=== PATIENT | female | born 1950 | race Caucasian/White ===

== ENCOUNTER → 2019-02-11 10:07 | Outpatient (CLI) | payer MEDICARE, MEDICAID, SELFPAY | PROVIDERS: PCP Internal Medicine; Visit Provider Physician Assistant | DX: M81.0 Age-related osteoporosis without current pathological fracture (principal); Z78.0 Asymptomatic menopausal state; Z90.722 Acquired absence of ovaries, bilateral; Z87.891 Personal history of nicotine dependence | CPT/HCPCS: 77080 ==

== ENCOUNTER 2019-06-20 08:57 | Emergency (ER) | payer MEDICARE, MEDICAID, SELFPAY ==
[2019-06-20 09:12] VITALS: BP 138/95; PULSE 73; RESP 18; TEMP 36.7; O2SAT 95
--- NOTE | 2019-06-20 09:13 | ED_ITS ---
HPI - SOB/Dyspnea General Chief Complaint: Shortness of Breath/Dyspnea Stated Complaint: possible pneumonia Time Seen by Provider: 06/20/19 09:07 Source: patient and EMS Mode of arrival: EMS Limitations: physical limitation (does not talk will shake her head) History of Present Illness Patient is a 69-year-old female who does not speak due to a stroke but can write things down and nod yes or now. She is presenting with cough. She was d iagnosed with possible pneumonia as outpatient and started on antibiotics a few days ago. She has had significant decreased oral intake over the last 2 weeks, caregiver at bedside states that she really won't eat or drink anything. She has been constipated as well and sometimes complains of abdominal pain. She has not had fever. She denies chest pain. MD Complaint: cough Related Data Home Medications Medication Instructions Recorded Confirmed mirtazapine 30 mg PO BEDTIME #0 06/22/17 06/20/19 sertraline 25 mg PO DAILY #0 06/22/17 06/20/19 albuterol sulfate [Ventolin HFA] 1 puff INHALATION PRN PRN 06/20/19 06/20/19 amlodipine 10 mg PO DAILY 06/20/19 06/20/19 azithromycin 250 mg PO DAILYX4 06/20/19 06/20/19 clopidogrel 75 mg PO DAILY 06/20/19 06/20/19 ondansetron 4 mg TRANSLINGUAL Q8H PRN 06/20/19 06/20/19 zolpidem 5 mg PO BEDTIME PRN 06/20/19 06/20/19 Previous Rx's Medication Instructions Recorded carvedilol [Coreg] 6.25 mg PO BID #30 tab 06/22/17 omeprazole 20 mg PO DAILY #14 cap 06/20/19 Allergies Allergy/AdvReac Type Severity Reaction Status Date / Time No Known Drug Allergies Allergy Verified 06/20/19 09:20 Review of Systems Review of Systems ROS Unobtainable: All systems reviewed & are unremarkable except as noted in HPI and below Constitutional Denies chills, Denies fever(s) and Reports poor appetite Eyes Denies change in vision, Denies eye discharge, Denies irritation and Denies loss of vision Cardiovascular Denies chest pain, Denies irregular heart rhythm, Denies dyspnea and Denies dyspnea on exertion Respiratory Reports cough, Denies dyspnea, Denies dyspnea on exertion and Denies wheezing Gastrointestinal Gastrointestinal: Reports abdominal pain, Reports change in bowel habits, Denies nausea and Denies vomiting Genitourinary Denies hematuria, Denies flank pain, Denies urinary incontinence and Denies urinary urgency Musculoskeletal Denies atrophy and Denies deformity Integumentary/Breasts Denies pruritus, Denies erythema, Denies rash and Denies wounds Neurologic Reports as per HPI and Denies loss of vision Allergic/Immunologic Denies wheezing [facility] Medical History CVA (cerebral vascular accident) (Acute) Hypertension (Acute) Social History Smoking Status: Former smoker Social History Smoking Status: Former smoker Exam Initial Vital Signs Initial Vital Signs: Vital Signs Temperature 98.1 F 06/20/19 09:12 Pulse Rate 73 06/20/19 09:12 Respiratory Rate 18 06/20/19 09:12 Blood Pressure 138/95 H 06/20/19 09:12 Pulse Oximetry 95 06/20/19 09:12 GENERAL: Alert well-appearing elderly female, follows commands nods appropriately HEENT: Head atraumatic,EOMI, pupils reactive, face symmetric, moist mucous mem branes CARDIOVASCULAR: Regular rate and rhythm without murmurs, rubs or gallops. RESPIRATORY: Breath sounds equal bilaterally, no wheezes rales or rhonchi. ABDOMEN: Soft, minimally tender in epigastric and left upper quadrant area no guarding no rebound EXTREMITIES: Normal range of motion, no clubbing or edema. Neurovascularly intact NEUROLOGICAL: New at baseline follows commands answer yes and no to questions SKIN: Warm, dry, no laceration, no petechiae, no rashes or lesions. Course Orders Ordered: ED Orders 06/20/19 09:14 XR chest 1V Stat 06/20/19 09:30 Complete Blood Count AUTO DIFF Stat Comprehensive Metabolic Panel Stat Lactate (Lactic Acid) Stat Lipase Stat Procalcitonin Stat 06/20/19 10:10 Blood Culture Stat 06/20/19 11:37 CT abdomen pelvis w con Stat Discontinued Medications Sodium Chloride (Normal Saline 0.9%) 1,000 mls @ 150 mls/hr IV CONT MIRIAM Last Infusion: 06/20/19 13:27 Dose: 0 mls/hr Infusion: 06/20/19 13:20 Dose: 0 mls/hr Admin: 06/20/19 09:39 Dose: 150 mls/hr Ondansetron HCl (Zofran Odt) 4 mg SL NOW ONE Stop: 06/20/19 13:36 Last Admin: 06/20/19 13:37 Dose: 4 mg Pantoprazole Sodium (Protonix) 40 mg IV NOW ONE Stop: 06/20/19 12:35 Last Admin: 06/20/19 13:18 Dose: 40 mg Potassium Chloride (Potassium Chloride) 20 meq PO NOW ONE Stop: 06/20/19 11:28 Last Admin: 06/20/19 11:35 Dose: 20 meq Vital Signs - 8 hr 06/20/19 09:12 06/20/19 10:32 06/20/19 11:52 Temperature 98.1 F Pulse Rate 73 63 79 Respiratory Rate 18 14 20 Blood Pressure 138/95 H Blood Pressure [Right Arm] 149/74 H 148/76 H Pulse Oximetry 95 96 92 06/20/19 13:27 Temperature Pulse Rate 69 Respiratory Rate 16 Blood Pressure 165/95 H Blood Pressure [Right Arm] Pulse Oximetry 96 MDM - SOB/Dyspnea Lab Data Attestation: I reviewed the patient's lab results. Result diagrams: 06/20/19 09:30 06/20/19 09:30 Lab Results 06/20/19 06/20/19 06/20/19 Range/Units 09:30 09:30 09:30 WBC 6.9 (4.5-11.0) X10^3/uL RBC 4.13 (4.0-5.2) X10^6/uL Hgb 13.3 (12.0-16.0) g/dL Hct 38.0 (36-46) % MCV 92.0 (80-100) fL MCH 32.2 (26-34) PG MCHC 34.9 (30-36) % RDW 15.0 H (11.6-14.8) % Plt Count 220 (150-400) X10^3/uL Neut % (Auto) 63.9 (50-75) % Lymph % (Auto) 27.2 (25-40) % Boyle % (Auto) 8.3 (3-14) % Eos % (Auto) 0.2 L (2-4) % Baso % (Auto) 0.4 (0-2) % Neut # (Auto) 4400 (9675-5675) /uL Lymph # (Auto) 1900 (5242-6692) /uL Boyle # (Auto) 600 (0-900) /uL Eos # (Auto) 0 (0-450) /uL Baso # (Auto) 0 (0-100) /uL Sodium 139 (137-145) mmol/L Potassium 3.0 L (3.4-5.1) mmol/L Chloride 96 L (98-107) mmol/L Carbon Dioxide 25 (22-32) mmol/L BUN 23 H (7-17) mg/dL Creatinine 0.60 (0.52-1.04) mg/dL Estimated GFR > 60.0 (>60) mL/min BUN/Creatinine Ratio 38.3 H (6-22) Glucose 126 H (80-110) mg/dL Lactate (0.7-2.1) mmol/L Calcium 9.9 (8.4-10.2) mg/dL Total Bilirubin 1.1 (0.2-1.3) mg/dL AST 20 (14-36) IU/L ALT 11 (9-52) IU/L Alkaline Phosphatase 42 (38-126) U/L Total Protein 7.2 (6.3-8.2) g/dL Albumin 4.5 (3.5-5.0) g/dL Globulin 2.7 (1.7-4.1) g/dL Albumin/Globulin Ratio 1.7 (1.0-2.8) Lipase (23-300) U/L Procalcitonin < 0.05 (<0.5) ng/mL 06/20/19 06/20/19 Range/Units 09:30 09:30 WBC (4.5-11.0) X10^3/uL RBC (4.0-5.2) X10^6/uL Hgb (12.0-16.0) g/dL Hct (36-46) % MCV (80-100) fL MCH (26-34) PG MCHC (30-36) % RDW (11.6-14.8) % Plt Count (150-400) X10^3/uL Neut % (Auto) (50-75) % Lymph % (Auto) (25-40) % Boyle % (Auto) (3-14) % Eos % (Auto) (2-4) % Baso % (Auto) (0-2) % Neut # (Auto) (9663-1249) /uL Lymph # (Auto) (8169-2494) /uL Boyle # (Auto) (0-900) /uL Eos # (Auto) (0-450) /uL Baso # (Auto) (0-100) /uL Sodium (137-145) mmol/L Potassium (3.4-5.1) mmol/L Chloride (98-107) mmol/L Carbon Dioxide (22-32) mmol/L BUN (7-17) mg/dL Creatinine (0.52-1.04) mg/dL Estimated GFR (>60) mL/min BUN/Creatinine Ratio (6-22) Glucose (80-110) mg/dL Lactate 1.1 (0.7-2.1) mmol/L Calcium (8.4-10.2) mg/dL Total Bilirubin (0.2-1.3) mg/dL AST (14-36) IU/L ALT (9-52) IU/L Alkaline Phosphatase (38-126) U/L Total Protein (6.3-8.2) g/dL Albumin (3.5-5.0) g/dL Globulin (1.7-4.1) g/dL Albumin/Globulin Ratio (1.0-2.8) Lipase 125 (23-300) U/L Procalcitonin (<0.5) ng/mL Imaging Data CT scan - abdomen: Radiologist's impression: PROCEDURE: CT ABDOMEN PELVIS W CON INDICATIONS: abdominal pains TECHNIQUE: After the administration of intravenous contrast, 5 mm thick sections acquired from the diaphragm to the symphysis. 5 mm coronal and sagittal reformats were acquired. For radiation dose reduction, the following was used: automated exposure control, adjustment of mA and/or kV according to patient size. COMPARISON: None. FINDINGS: Image quality: Excellent. ABDOMEN: Lung bases: Chronic emphysematous changes and by basilar hazy groundglass opacities are seen suggestive of mild pulmonary edema versus pneumonitis. No pleural effusion or pneumothorax. Heart size is enlarged, no pericardial effusion. Solid organs: Liver is normal in size and enhancement. Gallbladder is distended, no gross abnormality is seen. Biliary system is non dilated. Atrophic appearing pancreas shows no discrete pancreatic lesion. No peripancreatic inflammatory changes. Spleen is normal in size and enhancement. No adrenal nodules. Kidneys demonstrate normal size and enhancement, without hydronephrosis. Peritoneum and bowel: There is no evidence of bowel obstruction. Gastric wall and duodenal wall thickening is seen with edema. No other area of abnormal bowel wall thickening. Appendix is visualized and is within normal limits. No free fluid or free air. Small hiatal hernia is seen. Mild fecal stasis in the colon is noted. Nodes and vessels: No retroperitoneal or mesenteric adenopathy by size criteria. Aorta and inferior vena cava are normal in size. Extensive atherosclerotic calcifications are noted throughout the abdominal aorta and bilateral iliac arteries. Miscellaneous: No ventral hernias. PELVIS: Genitourinary: Bladder wall thickness is normal. Miscellaneous: No inguinal hernias or adenopathy. Uterus and bilateral adnexa shows no gross abnormality. Bones: No suspicious bony lesions. No vertebral body compression fractures. IMPRESSION: 1. Finding is suggestive of gastroduodenitis. No bowel obstruction. No free fluid or free air. Normal appendix. Small hiatal hernia. 2. No renal stone hydronephrosis. 3. COPD and suggestion of mild pulmonary edema versus pneumonitis. Cardiomegaly. 4. Extensive atherosclerotic disease throughout the abdominal aorta. Dictated by: Ken Cuevas M.D. on 06/20/2019 at 11:57 Chest x-ray: Radiologist's impression: PROCEDURE: XR CHEST 1V INDICATIONS: cough TECHNIQUE: One view of the chest was acquired. COMPARISON: [facility], CHEST 1 VIEW, 06/21/2017, 22:15. FINDINGS: Surgical changes and devices: None. Lungs and pleura: Lungs are clear. No pleural effusions or pneumothorax. Mediastinum: Tortuous thoracic aorta is seen. Heart size is enlarged. Bones and chest wall: No suspicious bony lesions. Overlying soft tissues appear unremarkable. IMPRESSION: Tortuous thoracic aorta with aortic arch calcification. No focal infiltrate, pleural effusion or pneumothorax. Dictated by: Ken Cuevas M.D. on 06/20/2019 at 9:39 MDM Narrative Medical decision making narrative: The patient is slightly dehydrated on labs she is even a little hypokalemic. CT does show some gastroduoditis, she is already taking omeprazole but will increase it. Patient is not septic. There is no infection. She did urinate while in the ED. She has no signs of pneumonia. Discussed with her spouse and caregiver we cannot make her eat or drink. But likely the inflammation her stomach is causing her not to eat or drink. Recommended increasing omeprazole to twice daily. In following up with her PCP. Discharge Plan Departure Patient Disposition: Home Clinical Impression: Gastroduodenitis, Acute hypokalemia Discharge Date/Time: 06/20/19 13:49 Interventions: ED Discharge Assessment Last Done: 06/20/19 13:27 Instructions: DI for Gastritis Activity Restrictions/Additional Instructions: *You have been diagnosed with gastroduodenitis *What to do: Inflammation of the stomach. Recommend increasing fluids as best as possible. Jell-O applesauce broth. Also boost or Ensure will also help with nutrition and hydration. There is no evidence of pneumonia. *Continue to take medications as directed--> SENT TO [facility] Omeprazole 20 mg twice a day *Follow up with your primary care provider in 2-3 days *Return to ER if you should have increasing confusion, weakness, pain or any new, worsening or concerning symptoms Prescriptions: New omeprazole 20 mg capsule,delayed release(DR/EC) 20 mg PO DAILY Qty: 14 RF: 0 No Action mirtazapine 30 MG tablet 30 mg PO BEDTIME Qty: 0 RF: 0 sertraline 25 MG tablet 25 mg PO DAILY Qty: 0 RF: 0 carvedilol [Coreg] 6.25 MG tablet 6.25 mg PO BID Qty: 30 RF: 0 azithromycin 250 mg tablet 250 mg PO DAILYX4 RF: 0 clopidogrel 75 mg tablet 75 mg PO DAILY RF: 0 amlodipine 10 mg tablet 10 mg PO DAILY RF: 0 zolpidem 5 mg tablet 5 mg PO BEDTIME PRN (Reason: Sleep) RF: 0 albuterol sulfate [Ventolin HFA] 90 mcg/actuation HFA aerosol inhaler 1 puff inhalation PRN PRN (Reason: Shortness Of Breath) RF: 0 ondansetron 4 mg tablet,disintegrating 4 mg translingual Q8H PRN (Reason: Nausea And Vomiting) RF: 0 Referrals: Roxane Hummel MD [Primary Care Provider] -
[2019-06-20] MEDS: SODIUM CHLORIDE 0.9% 1,000 ML 150 ML IV (09:39)
[2019-06-20 09:51] LABS: Add Manual Diff / Slide Review NO; Basophils Absolute Auto 0 /uL (0-100); Basophils Percent Auto 0.4 % (0-2); Eosinophils Absolute Auto 0 /uL (0-450); Eosinophils Percent Auto 0.2 % (2-4); Hemoglobin 13.3 g/dL (12.0-16.0); Lymphocytes Absolute Auto 1900 /uL (1100-4500); Lymphocytes Percent Auto 27.2 % (25-40); Mean Corpuscular HGB Conc 34.9 % (30-36); Mean Corpuscular Hemoglobin 32.2 PG (26-34); Monocytes Absolute Auto 600 /uL (0-900); Monocytes Percent Auto 8.3 % (3-14); Neutrophils Absolute Auto 4400 /uL (1500-7000); Neutrophils Percent Auto 63.9 % (50-75); Platelet Count 220 X10^3/uL (150-400); Red Blood Cell Count 4.13 X10^6/uL (4.0-5.2); White Blood Cell Count 6.9 X10^3/uL (4.5-11.0)
[2019-06-20 09:55] LABS: Lactate (Lactic Acid) 1.1 mmol/L (0.7-2.1)
[2019-06-20 09:56] LABS: Alanine Aminotransferase 11 IU/L (9-52); Albumin 4.5 g/dL (3.5-5.0); Albumin Globulin Ratio 1.7 (1.0-2.8); Alkaline Phosphatase 42 U/L (38-126); Aspartate Aminotransferase 20 IU/L (14-36); BUN Creatinine Ratio 38.3 (6-22); Bilirubin Total 1.1 mg/dL (0.2-1.3); Blood Urea Nitrogen 23 mg/dL (7-17); Calcium 9.9 mg/dL (8.4-10.2); Carbon Dioxide 25 mmol/L (22-32); Chloride 96 mmol/L (98-107); Estimated Glomerular Filt Rate > 60.0 mL/min (>60); Globulin 2.7 g/dL (1.7-4.1); Glucose 126 mg/dL (80-110); HEMOLYSIS 26 (0-50); Sodium 139 mmol/L (137-145); Total Protein 7.2 g/dL (6.3-8.2)
[2019-06-20 10:18] LABS: Procalcitonin < 0.05 ng/mL (<0.5)
[2019-06-20 10:32] VITALS: BP 149/74; PULSE 63; RESP 14; O2SAT 96
[2019-06-20] MEDS: POTASSIUM CHLORIDE 20 MEQ/15 ML UDC PO (11:35)
--- NOTE | 2019-06-20 11:37 | DI.CT.S_ITS ---
PROCEDURE: CT ABDOMEN PELVIS W CON INDICATIONS: abdominal pains TECHNIQUE: After the administration of intravenous contrast, 5 mm thick sections acquired from the diaphragm to the symphysis. 5 mm coronal and sagittal reformats were acquired. For radiation dose reduction, the following was used: automated exposure control, adjustment of mA and/or kV according to patient size. COMPARISON: None. FINDINGS: Image quality: Excellent. ABDOMEN: Lung bases: Chronic emphysematous changes and by basilar hazy groundglass opacities are seen suggestive of mild pulmonary edema versus pneumonitis. No pleural effusion or pneumothorax. Heart size is enlarged, no pericardial effusion. Solid organs: Liver is normal in size and enhancement. Gallbladder is distended, no gross abnormality is seen. Biliary system is non dilated. Atrophic appearing pancreas shows no discrete pancreatic lesion. No peripancreatic inflammatory changes. Spleen is normal in size and enhancement. No adrenal nodules. Kidneys demonstrate normal size and enhancement, without hydronephrosis. Peritoneum and bowel: There is no evidence of bowel obstruction. Gastric wall and duodenal wall thickening is seen with edema. No other area of abnormal bowel wall thickening. Appendix is visualized and is within normal limits. No free fluid or free air. Small hiatal hernia is seen. Mild fecal stasis in the colon is noted. Nodes and vessels: No retroperitoneal or mesenteric adenopathy by size criteria. Aorta and inferior vena cava are normal in size. Extensive atherosclerotic calcifications are noted throughout the abdominal aorta and bilateral iliac arteries. Miscellaneous: No ventral hernias. PELVIS: Genitourinary: Bladder wall thickness is normal. Miscellaneous: No inguinal hernias or adenopathy. Uterus and bilateral adnexa shows no gross abnormality. Bones: No suspicious bony lesions. No vertebral body compression fractures. IMPRESSION: 1. Finding is suggestive of gastroduodenitis. No bowel obstruction. No free fluid or free air. Normal appendix. Small hiatal hernia. 2. No renal stone hydronephrosis. 3. COPD and suggestion of mild pulmonary edema versus pneumonitis. Cardiomegaly. 4. Extensive atherosclerotic disease throughout the abdominal aorta. Dictated by: Ken Cuevas M.D. on 06/20/2019 at 11:57 Approved by: Ken Cuevas M.D. on 06/20/2019 at 12:04
[2019-06-20 11:45] LABS: Lipase 125 U/L (23-300)
[2019-06-20 11:52] VITALS: BP 148/76; PULSE 79; RESP 20; O2SAT 92
[2019-06-20] MEDS: PANTOPRAZOLE 40 MG VIAL IV (13:18)
[2019-06-20 13:27] VITALS: BP 165/95; PULSE 69; RESP 16; O2SAT 96
[2019-06-20] MEDS: ONDANSETRON 4 MG ODT SL (13:37)
== END 2019-06-20 13:49 | disposition home or self-care (01) ==
PROVIDERS: Emergency Provider Emergency Medicine; PCP Internal Medicine
DX: K29.90 Gastroduodenitis, unspecified, without bleeding (principal); E87.6 Hypokalemia
CPT/HCPCS: 36415; 36591; 71045; 74177; 80053; 83605; 83690; 84145; 85025; 87040; 96361; 96374; 99284; C9113; Q9967

== ENCOUNTER 2019-06-24 12:10 | Inpatient (IN) | payer MEDICARE, MEDICAID, SELFPAY ==
[2019-06-24] VITALS (10 sets, daily range): BP systolic 136–163; BP diastolic 72–92; PULSE 61–77; RESP 11–18; TEMP 36.2; O2SAT 93–98; BMI 18.8
--- NOTE | 2019-06-24 12:11 | DI.RAD.S_ITS ---
PROCEDURE: XR ACUTE ABDOMEN SERIES INDICATIONS: persistent vomiting TECHNIQUE: One view chest and two views of the abdomen were acquired. COMPARISON: None. FINDINGS: Surgical changes and devices: None. Chest: Lungs are clear. Heart size is at the upper limits of normal. No pleural effusions. No pneumoperitoneum. Abdomen: Bowel gas pattern is abnormal with an unusually prominent degree of gas within the colon, measuring up to 7.6 cm in maximal transverse dimension but areas of definite small bowel distention are not found. No free air seen.. No suspicious calcifications. Visualized solid organ contours appear normal. Bones: No suspicious bony lesions. IMPRESSION: Unusually prominent bowel gas which is predominantly colonic, and yet the transverse dimension of the colon does not reach the size criteria for definite distention and obstruction. Small bowel loops do not appear distended. No free air seen. Depending on clinical status followup by CT scanning may become necessary. Dictated by: Pj Alvares M.D. on 06/24/2019 at 14:03 Approved by: Pj Alvares M.D. on 06/24/2019 at 14:05
--- NOTE | 2019-06-24 12:14 | ED.NAVMDI ---
HPI - Nausea/Vomiting/Diarrhea General Chief complaint: Nausea/Vomiting/Diarrhea Stated complaint: N/V Time Seen by Provider: 06/24/19 12:11 Source: patient and EMS Mode of arrival: EMS Limitations: physical limitation and other (non verbal at baseline) History of Present Illness HPI Narrative: 69-year-old female of stroke which has left her nonverbal presents by EMS from home for evaluation of increased weakness and persistent vomiting for the past few weeks. Family states that she has had very little to eat or drink in quite some time. They state that she frequently chokes on what she attempts to eat or drink and that she has become significantly weak. Patient normally ambulates with assistance and a wheelchair but has become too weak to do this safely in the eyes of family at home. She has had no fever or chills. She was seen and evaluated in our emergency department on June 20, she had extensive lab work and imaging including a CT of the abdomen noting gastroduodenitis in the absence of bowel obstruction. She was encouraged to increase her PPI to twice daily. MD complaint: nausea and vomiting Onset (ago): week(s) Description of Vomiting: food contents and watery Description of Diarrhea: none Related Data Home Medications Medication Instructions Recorded Confirmed mirtazapine 30 mg PO BEDTIME #0 06/22/17 06/24/19 sertraline 25 mg PO DAILY #0 06/22/17 06/24/19 albuterol sulfate [Ventolin HFA] 1 puff INHALATION PRN PRN 06/20/19 06/24/19 amlodipine 10 mg PO DAILY 06/20/19 06/24/19 azithromycin 250 mg PO DAILYX4 06/20/19 06/24/19 clopidogrel 75 mg PO DAILY 06/20/19 06/24/19 ondansetron 4 mg TRANSLINGUAL Q8H PRN 06/20/19 06/24/19 zolpidem 5 mg PO BEDTIME PRN 06/20/19 06/24/19 Previous Rx's Medication Instructions Recorded carvedilol [Coreg] 6.25 mg PO BID #30 tab 06/22/17 omeprazole 20 mg PO DAILY #14 cap 06/20/19 Allergies Allergy/AdvReac Type Severity Reaction Status Date / Time No Known Drug Allergies Allergy Verified 06/24/19 12:20 Review of Systems Review of Systems ROS Unobtainable: All systems reviewed & are unremarkable except as noted in HPI and below Constitutional Denies chills, Denies fever(s), Denies lethargy and Reports weakness Eyes Denies change in vision, Denies eye discharge, Denies irritation and Denies loss of vision ENT Ears, Nose, Mouth, and Throat: Denies change in voice, Denies neck pain and Denies sore throat Cardiovascular Denies chest pain, Denies irregular heart rhythm, Denies lightheadedness, Denies palpitations, Denies dyspnea, Denies dyspnea on exertion and Denies orthopnea Respiratory Denies cough, Denies dyspnea, Denies dyspnea on exertion and Denies wheezing Gastrointestinal Gastrointestinal: Reports abdominal pain, Denies change in bowel habits, Denies diarrhea, Reports nausea and Reports vomiting Genitourinary Denies hematuria, Denies flank pain, Denies urinary incontinence and Denies urinary urgency Musculoskeletal Denies neck pain Integumentary/Breasts Denies pruritus, Denies erythema, Denies rash and Denies wounds Neurologic Denies confusion, Denies loss of vision and Reports weakness Psychiatric Denies anxiety, Denies confusion, Denies depression, Denies homicidal ideation and Denies suicidal ideation Endocrine Denies palpitations Hematologic/Lymphatic Denies easy bruising Allergic/Immunologic Denies wheezing PFSH Medical History CVA (cerebral vascular accident) (Acute) Hypertension (Acute) Social History household members: spouse Smoking Status: Former smoker alcohol intake: former Exam Narrative Exam Narrative: GENERAL: Pleasant 69-year-old female appears stated age. Clearly uncomfortable and rubbing her abdomen. She is nonverbal but communicates well by head nods and hand gestures. HEAD: Atraumatic. Normocephalic. No temporal or scalp tenderness. EYES: Pupils equal round and reactive. Extraocular motions intact. No scleral icterus. No injection or drainage. ENT: Nose without bleeding, purulent drainage or septal hematoma. Throat without erythema, tonsillar hypertrophy or exudate. Uvula midline. Airway patent. NECK: Trachea midline. No JVD or lymphadenopathy. Supple, nontender, no meningeal signs. CARDIOVASCULAR: Regular rate and rhythm without murmurs, gallops, or rubs. RESPIRATORY: Clear to auscultation. Breath sounds equal bilaterally. No wheezes, rales, or rhonchi. GASTROINTESTINAL: Abdomen soft, tender in the epigastrium, nondistended. No hepato-splenomegaly, or palpable masses. No guarding. EXTREMITIES: No clubbing, cyanosis, or edema. No joint tenderness, effusion, or edema noted. BACK: Nontender without deformity or crepitance. No flank tenderness. NEURO: AOx3. SKIN: No rash or erythema. Initial Vital Signs Initial Vital Signs: Vital Signs Pulse Rate 77 06/24/19 12:10 Respiratory Rate 16 06/24/19 12:10 Blood Pressure 154/72 H 06/24/19 12:10 Pulse Oximetry 98 06/24/19 12:10 Course Orders Ordered: ED Orders 06/24/19 12:11 XR acute abdomen series Stat 06/24/19 12:20 Complete Blood Count AUTO DIFF Stat Comprehensive Metabolic Panel Stat Lipase Stat Magnesium Stat 06/24/19 12:30 Urinalysis and Microscopic Stat 06/24/19 14:44 CT abdomen pelvis w con Stat 06/24/19 17:58 Consult to Dietitian, Adult Routine Potassium Chloride 80 meq/ (Sodium Chloride) 1,040 mls @ 130 mls/hr IV NOW ONE Stop: 06/24/19 21:53 Last Infusion: 06/24/19 17:10 Dose: 130 mls/hr Admin: 06/24/19 14:40 Dose: 130 mls/hr Sodium Chloride (Normal Saline 0.9%) 1,000 mls @ 100 mls/hr IV CONT MIRIAM Last Admin: 06/24/19 14:39 Dose: Not Given Discontinued Medications Sodium Chloride (Normal Saline 0.9%) 1,000 mls @ 1,000 mls/hr IV BOLUS ONE Stop: 06/24/19 13:10 Last Infusion: 06/24/19 14:11 Dose: 0 mls/hr Infusion: 06/24/19 14:10 Dose: 0 mls/hr Admin: 06/24/19 12:28 Dose: 1,000 mls/hr Ondansetron HCl (Zofran) 4 mg IV NOW ONE Stop: 06/24/19 12:12 Last Admin: 06/24/19 12:28 Dose: 4 mg Pantoprazole Sodium (Protonix) 80 mg IV NOW ONE Stop: 06/24/19 16:24 Last Admin: 06/24/19 17:03 Dose: 80 mg Consultations Consultation #1: Images reviewed by surgeon on-call. No obstruction noted. Duodenal thickening does not require antibiotics but PPI twice daily. Likely will need a scope in the next day or 2 Vital Signs - 8 hr 06/24/19 12:10 06/24/19 12:30 06/24/19 13:00 Pulse Rate 77 63 62 Respiratory Rate 16 17 13 Blood Pressure 154/72 H Blood Pressure [Left Arm] 150/73 H 136/78 Pulse Oximetry 98 96 95 06/24/19 13:30 06/24/19 14:00 06/24/19 14:43 Pulse Rate 61 66 Respiratory Rate 16 12 11 L Blood Pressure Blood Pressure [Left Arm] 151/72 H 148/72 H 151/76 H Pulse Oximetry 93 95 06/24/19 16:00 06/24/19 16:01 06/24/19 16:50 Pulse Rate 76 73 72 Respiratory Rate 15 16 17 Blood Pressure Blood Pressure [Left Arm] 158/83 H 153/74 H 163/92 H Pulse Oximetry 98 96 97 MDM - Nausea/Vomiting/Diarrhea Lab Data Result diagrams: 06/24/19 12:20 06/24/19 12:20 Lab Results 06/24/19 06/24/19 06/24/19 Range/Units 12:20 12:20 12:20 WBC 6.6 (4.5-11.0) X10^3/uL RBC 4.11 (4.0-5.2) X10^6/uL Hgb 13.3 (12.0-16.0) g/dL Hct 37.9 (36-46) % MCV 92.3 (80-100) fL MCH 32.3 (26-34) PG MCHC 35.0 (30-36) % RDW 14.7 (11.6-14.8) % Plt Count 232 (150-400) X10^3/uL Neut % (Auto) 63.5 (50-75) % Lymph % (Auto) 26.6 (25-40) % Boyd % (Auto) 9.4 (3-14) % Eos % (Auto) 0.1 L (2-4) % Baso % (Auto) 0.4 (0-2) % Neut # (Auto) 4200 (5565-3700) /uL Lymph # (Auto) 1800 (2223-4962) /uL Boyd # (Auto) 600 (0-900) /uL Eos # (Auto) 0 (0-450) /uL Baso # (Auto) 0 (0-100) /uL Sodium 136 L (137-145) mmol/L Potassium 3.0 L (3.4-5.1) mmol/L Chloride 92 L (98-107) mmol/L Carbon Dioxide 26 (22-32) mmol/L BUN 21 H (7-17) mg/dL Creatinine 0.50 L (0.52-1.04) mg/dL Estimated GFR > 60.0 (>60) mL/min BUN/Creatinine Ratio 42.0 H (6-22) Glucose 126 H (80-110) mg/dL Calcium 9.7 (8.4-10.2) mg/dL Magnesium 1.7 (1.6-2.3) mg/dL Total Bilirubin 1.3 (0.2-1.3) mg/dL AST 20 (14-36) IU/L ALT 8 L (9-52) IU/L Alkaline Phosphatase 44 (38-126) U/L Total Protein 7.1 (6.3-8.2) g/dL Albumin 4.4 (3.5-5.0) g/dL Globulin 2.7 (1.7-4.1) g/dL Albumin/Globulin Ratio 1.6 (1.0-2.8) Lipase 185 (23-300) U/L Urine Color Urine Appearance Urine pH (4.5-8.0) Ur Specific [place] (1.000-1.035) Urine Protein (Negative) Urine Glucose (UA) (Negative) g/dL Urine Ketones (NEGATIVE) Urine Occult Blood (Negative) Urine Nitrate (Negative) Urine Bilirubin (NEGATIVE) Urine Urobilinogen (0.2) E.U./dL Ur Leukocyte Esterase (NEGATIVE) Urine RBC (0-5/HPF) Urine WBC (0-5/HPF) Ur Squamous Epith Cells (0-5/HPF) Amorphous Sediment Urine Bacteria (None) Urine Mucus (Negative) Ur Culture Indicated? 06/24/19 Range/Units 12:30 WBC (4.5-11.0) X10^3/uL RBC (4.0-5.2) X10^6/uL Hgb (12.0-16.0) g/dL Hct (36-46) % MCV (80-100) fL MCH (26-34) PG MCHC (30-36) % RDW (11.6-14.8) % Plt Count (150-400) X10^3/uL Neut % (Auto) (50-75) % Lymph % (Auto) (25-40) % Boyd % (Auto) (3-14) % Eos % (Auto) (2-4) % Baso % (Auto) (0-2) % Neut # (Auto) (7555-2681) /uL Lymph # (Auto) (2515-9594) /uL Boyd # (Auto) (0-900) /uL Eos # (Auto) (0-450) /uL Baso # (Auto) (0-100) /uL Sodium (137-145) mmol/L Potassium (3.4-5.1) mmol/L Chloride (98-107) mmol/L Carbon Dioxide (22-32) mmol/L BUN (7-17) mg/dL Creatinine (0.52-1.04) mg/dL Estimated GFR (>60) mL/min BUN/Creatinine Ratio (6-22) Glucose (80-110) mg/dL Calcium (8.4-10.2) mg/dL Magnesium (1.6-2.3) mg/dL Total Bilirubin (0.2-1.3) mg/dL AST (14-36) IU/L ALT (9-52) IU/L Alkaline Phosphatase (38-126) U/L Total Protein (6.3-8.2) g/dL Albumin (3.5-5.0) g/dL Globulin (1.7-4.1) g/dL Albumin/Globulin Ratio (1.0-2.8) Lipase (23-300) U/L Urine Color Yellow Urine Appearance Clear Urine pH 7.0 (4.5-8.0) Ur Specific [place] 1.020 (1.000-1.035) Urine Protein 1+ H (Negative) Urine Glucose (UA) Negative (Negative) g/dL Urine Ketones 2+ H (NEGATIVE) Urine Occult Blood Negative (Negative) Urine Nitrate Negative (Negative) Urine Bilirubin 2+ H (NEGATIVE) Urine Urobilinogen 1.0 (0.2) E.U./dL Ur Leukocyte Esterase Negative (NEGATIVE) Urine RBC None seen (0-5/HPF) Urine WBC 0-1/hpf (0-5/HPF) Ur Squamous Epith Cells 0-1 /hpf (0-5/HPF) Amorphous Sediment 1+ Urine Bacteria None seen (None) Urine Mucus 1+ H (Negative) Ur Culture Indicated? Cult not indicated Imaging Data Abdominal x-ray: Radiologist's impression: [place] [address] XRay Report Signed Patient: Екатерина Murphy [facility]#: [id number] : 9Acct:[id number] Age/Sex: 69 / FDate of Service: 06/24/19 Loc: ED Accession Number: [id number] Procedure: XR acute abdomen series Ordering Provider: Hiram Saldana D.O. PROCEDURE: XR ACUTE ABDOMEN SERIES INDICATIONS: persistent vomiting TECHNIQUE: One view chest and two views of the abdomen were acquired. COMPARISON: None. FINDINGS: Surgical changes and devices: None. Chest: Lungs are clear. Heart size is at the upper limits of normal. No pleural effusions. No pneumoperitoneum. Abdomen: Bowel gas pattern is abnormal with an unusually prominent degree of gas within the colon, measuring up to 7.6 cm in maximal transverse dimension but areas of definite small bowel distention are not found. No free air seen.. No suspicious calcifications. Visualized solid organ contours appear normal. Bones: No suspicious bony lesions. IMPRESSION: Unusually prominent bowel gas which is predominantly colonic, and yet the transverse dimension of the colon does not reach the size criteria for definite distention and obstruction. Small bowel loops do not appear distended. No free air seen. Depending on clinical status followup by CT scanning may become necessary. Dictated by: Pj Alvares M.D. on 06/24/2019 at 14:03 Approved by: Pj Alvares M.D. on 06/24/2019 at 14:05 CT scan - abdomen: Radiologist's impression: [address] [address] [address] Scan Report Signed Patient: Екатерина Murphy [facility]#: [id number] : 9Acct:[id number] Age/Sex: 69 / FDate of Service: 06/24/19 Loc: ED Accession Number: [id number] Procedure: CT abdomen pelvis w con Ordering Provider: Hiram Saldana D.O. PROCEDURE: CT ABDOMEN PELVIS W CON INDICATIONS: persistent vomiting with distended bowel loops on x-ray TECHNIQUE: After the administration of intravenous contrast, 5 mm thick sections acquired from the diaphragm to the symphysis. 5 mm coronal and sagittal reformats were acquired. For radiation dose reduction, the following was used: automated exposure control, adjustment of mA and/or kV according to patient size. COMPARISON: [facility], CT, CT ABDOMEN PELVIS W CON, 06/20/2019, 11:31. [facility], CR, XR ACUTE ABDOMEN SERIES, 06/24/2019, 12:15. FINDINGS: Image quality: Excellent. ABDOMEN: Lung bases: There is mild dependent atelectasis. Heart size is enlarged. There is a small hiatal hernia. Solid organs: Evaluation of the liver demonstrates no focal hepatic lesions. The gallbladder appears within normal limits without calcified gallstones. Biliary system is non-dilated. Pancreas enhances normally. No peripancreatic fat stranding or fluid collections. No pancreatic duct dilatation. The spleen is normal in size. No adrenal nodules. Kidneys demonstrate no hydronephrosis. Peritoneum and bowel: Small bowel loops demonstrate normal wall thickness and caliber. The appendix is normal in appearance. There is mild gaseous distention of the transverse, descending, and proximal sigmoid colon, measuring up to 4.4 cm in diameter. No air-fluid levels. There is a transition point in the mid sigmoid colon without a discrete mass or focal bowel wall thickening. More distally, there is moderate gas and stool distention of the rectum. No free fluid or air. Nodes and vessels: No retroperitoneal or mesenteric adenopathy by size criteria. Aorta and inferior vena cava are normal in size. Miscellaneous: No ventral hernias. PELVIS: Genitourinary: Bladder wall thickness is normal. Miscellaneous: No inguinal hernias or adenopathy. Bones: No suspicious bony lesions. No vertebral body compression fractures. IMPRESSION: 1. Mild segmental gas distention of the colon involving the transverse through proximal sigmoid colon. The finding likely represents an ileus. A distal colonic obstruction at the level of the mid sigmoid colon is in the differential but considered less likely. No discrete associated mass or wall thickening identified. No evidence of small bowel obstruction. Dictated by: Haroldo Carranza M.D. on 06/24/2019 at 15:33 Approved by: Haroldo Carranza M.D. on 06/24/2019 at 15:46 Discharge Plan Departure Patient Disposition: Admitted As Inpatient Clinical Impression: Acute duodenitis Intractable vomiting Qualifiers: Vomiting type: unspecified Nausea presence: with nausea Qualified Code(s): R11.2 - Nausea with vomiting, unspecified Discharge Date/Time: 06/24/19 17:10 Interventions: ED Discharge Assessment Last Done: 06/24/19 17:10 Admit Date/Time: 06/24/19 16:42 Admit Provider: Mojgan Rodríguez
--- NOTE | 2019-06-24 12:22 | ED_ITS ---
HPI - Nausea/Vomiting/Diarrhea General Chief complaint: Nausea/Vomiting/Diarrhea Stated complaint: N/V Time Seen by Provider: 06/24/19 12:11 Source: patient and EMS Mode of arrival: EMS Limitations: physical limitation and other (non verbal at baseline) History of Present Illness HPI Narrative: 69-year-old female of stroke which has left her nonverbal presents by EMS from home for evaluation of increased weakness and persistent vomiting for the past few weeks. Family states that she has had very little to eat or drink in quite some time. They state that she frequently chokes on what she attempts to eat or drink and that she has become significantly weak. Patient normally ambulates with assistance and a wheelchair but has become too weak to do this safely in the eyes of family at home. She has had no fever or chills. She was seen and evaluated in our emergency department on June 20, she had extensive lab work and imaging including a CT of the abdomen noting gastroduodenitis in the absence of bowel obstruction. She was encouraged to increase her PPI to twice daily. MD complaint: nausea and vomiting Onset (ago): week(s) Description of Vomiting: food contents and watery Description of Diarrhea: none Related Data Home Medications Medication Instructions Recorded Confirmed mirtazapine 30 mg PO BEDTIME #0 06/22/17 06/24/19 sertraline 25 mg PO DAILY #0 06/22/17 06/24/19 albuterol sulfate [Ventolin HFA] 1 puff INHALATION PRN PRN 06/20/19 06/24/19 amlodipine 10 mg PO DAILY 06/20/19 06/24/19 azithromycin 250 mg PO DAILYX4 06/20/19 06/24/19 clopidogrel 75 mg PO DAILY 06/20/19 06/24/19 ondansetron 4 mg TRANSLINGUAL Q8H PRN 06/20/19 06/24/19 zolpidem 5 mg PO BEDTIME PRN 06/20/19 06/24/19 Previous Rx's Medication Instructions Recorded carvedilol [Coreg] 6.25 mg PO BID #30 tab 06/22/17 omeprazole 20 mg PO DAILY #14 cap 06/20/19 Allergies Allergy/AdvReac Type Severity Reaction Status Date / Time No Known Drug Allergies Allergy Verified 06/24/19 12:20 Review of Systems Review of Systems ROS Unobtainable: All systems reviewed & are unremarkable except as noted in HPI and below Constitutional Denies chills, Denies fever(s), Denies lethargy and Reports weakness Eyes Denies change in vision, Denies eye discharge, Denies irritation and Denies loss of vision ENT Ears, Nose, Mouth, and Throat: Denies change in voice, Denies neck pain and Denies sore throat Cardiovascular Denies chest pain, Denies irregular heart rhythm, Denies lightheadedness, Denies palpitations, Denies dyspnea, Denies dyspnea on exertion and Denies orthopnea Respiratory Denies cough, Denies dyspnea, Denies dyspnea on exertion and Denies wheezing Gastrointestinal Gastrointestinal: Reports abdominal pain, Denies change in bowel habits, Denies diarrhea, Reports nausea and Reports vomiting Genitourinary Denies hematuria, Denies flank pain, Denies urinary incontinence and Denies urinary urgency Musculoskeletal Denies neck pain Integumentary/Breasts Denies pruritus, Denies erythema, Denies rash and Denies wounds Neurologic Denies confusion, Denies loss of vision and Reports weakness Psychiatric Denies anxiety, Denies confusion, Denies depression, Denies homicidal ideation and Denies suicidal ideation Endocrine Denies palpitations Hematologic/Lymphatic Denies easy bruising Allergic/Immunologic Denies wheezing PFSH Medical History CVA (cerebral vascular accident) (Acute) Hypertension (Acute) Social History household members: spouse Smoking Status: Former smoker alcohol intake: former Exam Narrative Exam Narrative: GENERAL: Pleasant 69-year-old female appears stated age. Clearly uncomfortable and rubbing her abdomen. She is nonverbal but communi cates well by head nods and hand gestures. HEAD: Atraumatic. Normocephalic. No temporal or scalp tenderness. EYES: Pupils equal round and reactive. Extraocular motions intact. No scleral icterus. No injection or drainage. ENT: Nose without bleeding, purulent drainage or septal hematoma. Throat without erythema, tonsillar hypertrophy or exudate. Uvula midline. Airway patent. NECK: Trachea midline. No JVD or lymphadenopathy. Supple, nontender, no meningeal signs. CARDIOVASCULAR: Regular rate and rhythm without murmurs, gallops, or rubs. RESPIRATORY: Clear to auscultation. Breath sounds equal bilaterally. No wheezes, rales, or rhonchi. GASTROINTESTINAL: Abdomen soft, tender in the epigastrium, nondistended. No hepato-splenomegaly, or palpable masses. No guarding. EXTREMITIES: No clubbing, cyanosis, or edema. No joint tenderness, effusion, or edema noted. BACK: Nontender without deformity or crepitance. No flank tenderness. NEURO: AOx3. SKIN: No rash or erythema. Initial Vital Signs Initial Vital Signs: Vital Signs Pulse Rate 77 06/24/19 12:10 Respiratory Rate 16 06/24/19 12:10 Blood Pressure 154/72 H 06/24/19 12:10 Pulse Oximetry 98 06/24/19 12:10 Course Orders Ordered: ED Orders 06/24/19 12:11 XR acute abdomen series Stat 06/24/19 12:20 Complete Blood Count AUTO DIFF Stat Comprehensive Metabolic Panel Stat Lipase Stat Magnesium Stat 06/24/19 12:30 Urinalysis and Microscopic Stat 06/24/19 14:44 CT abdomen pelvis w con Stat 06/24/19 17:58 Consult to Dietitian, Adult Routine Potassium Chloride 80 meq/ (Sodium Chloride) 1,040 mls @ 130 mls/hr IV NOW ONE Stop: 06/24/19 21:53 Last Infusion: 06/24/19 17:10 Dose: 130 mls/hr Admin: 06/24/19 14:40 Dose: 130 mls/hr Sodium Chloride (Normal Saline 0.9%) 1,000 mls @ 100 mls/hr IV CONT MIRIAM Last Admin: 06/24/19 14:39 Dose: Not Given Discontinued Medications Sodium Chloride (Normal Saline 0.9%) 1,000 mls @ 1,000 mls/hr IV BOLUS ONE Stop: 06/24/19 13:10 Last Infusion: 06/24/19 14:11 Dose: 0 mls/hr Infusion: 06/24/19 14:10 Dose: 0 mls/hr Admin: 06/24/19 12:28 Dose: 1,000 mls/hr Ondansetron HCl (Zofran) 4 mg IV NOW ONE Stop: 06/24/19 12:12 Last Admin: 06/24/19 12:28 Dose: 4 mg Pantoprazole Sodium (Protonix) 80 mg IV NOW ONE Stop: 06/24/19 16:24 Last Admin: 06/24/19 17:03 Dose: 80 mg Consultations Consultation #1: Images reviewed by surgeon on-call. No obstruction noted. Duodenal thickening does not require antibiotics but PPI twice daily. Likely will need a scope in the next day or 2 Vital Signs - 8 hr 06/24/19 12:10 06/24/19 12:30 06/24/19 13:00 Pulse Rate 77 63 62 Respiratory Rate 16 17 13 Blood Pressure 154/72 H Blood Pressure [Left Arm] 150/73 H 136/78 Pulse Oximetry 98 96 95 06/24/19 13:30 06/24/19 14:00 06/24/19 14:43 Pulse Rate 61 66 Respiratory Rate 16 12 11 L Blood Pressure Blood Pressure [Left Arm] 151/72 H 148/72 H 151/76 H Pulse Oximetry 93 95 06/24/19 16:00 06/24/19 16:01 06/24/19 16:50 Pulse Rate 76 73 72 Respiratory Rate 15 16 17 Blood Pressure Blood Pressure [Left Arm] 158/83 H 153/74 H 163/92 H Pulse Oximetry 98 96 97 MDM - Nausea/Vomiting/Diarrhea Lab Data Result diagrams: 06/24/19 12:20 06/24/19 12:20 Lab Results 06/24/19 06/24/19 06/24/19 Range/Units 12:20 12:20 12:20 WBC 6.6 (4.5-11.0) X10^3/uL RBC 4.11 (4.0-5.2) X10^6/uL Hgb 13.3 (12.0-16.0) g/dL Hct 37.9 (36-46) % MCV 92.3 (80-100) fL MCH 32.3 (26-34) PG MCHC 35.0 (30-36) % RDW 14.7 (11.6-14.8) % Plt Count 232 (150-400) X10^3/uL Neut % (Auto) 63.5 (50-75) % Lymph % (Auto) 26.6 (25-40) % [place] % (Auto) 9.4 (3-14) % Eos % (Auto) 0.1 L (2-4) % Baso % (Auto) 0.4 (0-2) % Neut # (Auto) 4200 (3922-1973) /uL Lymph # (Auto) 1800 (8298-5427) /uL [place] # (Auto) 600 (0-900) /uL Eos # (Auto) 0 (0-450) /uL Baso # (Auto) 0 (0-100) /uL Sodium 136 L (137-145) mmol/L Potassium 3.0 L (3.4-5.1) mmol/L Chloride 92 L (98-107) mmol/L Carbon Dioxide 26 (22-32) mmol/L BUN 21 H (7-17) mg/dL Creatinine 0.50 L (0.52-1.04) mg/dL Estimated GFR > 60.0 (>60) mL/min BUN/Creatinine Ratio 42.0 H (6-22) Glucose 126 H (80-110) mg/dL Calcium 9.7 (8.4-10.2) mg/dL Magnesium 1.7 (1.6-2.3) mg/dL Total Bilirubin 1.3 (0.2-1.3) mg/dL AST 20 (14-36) IU/L ALT 8 L (9-52) IU/L Alkaline Phosphatase 44 (38-126) U/L Total Protein 7.1 (6.3-8.2) g/dL Albumin 4.4 (3.5-5.0) g/dL Globulin 2.7 (1.7-4.1) g/dL Albumin/Globulin Ratio 1.6 (1.0-2.8) Lipase 185 (23-300) U/L Urine Color Urine Appearance Urine pH (4.5-8.0) Ur Specific [place] (1.000-1.035) Urine Protein (Negative) Urine Glucose (UA) (Negative) g/dL Urine Ketones (NEGATIVE) Urine Occult Blood (Negative) Urine Nitrate (Negative) Urine Bilirubin (NEGATIVE) Urine Urobilinogen (0.2) E.U./dL Ur Leukocyte Esterase (NEGATIVE) Urine RBC (0-5/HPF) Urine WBC (0-5/HPF) Ur Squamous Epith Cells (0-5/HPF) Amorphous Sediment Urine Bacteria (None) Urine Mucus (Negative) Ur Culture Indicated? 06/24/19 Range/Units 12:30 WBC (4.5-11.0) X10^3/uL RBC (4.0-5.2) X10^6/uL Hgb (12.0-16.0) g/dL Hct (36-46) % MCV (80-100) fL MCH (26-34) PG MCHC (30-36) % RDW (11.6-14.8) % Plt Count (150-400) X10^3/uL Neut % (Auto) (50-75) % Lymph % (Auto) (25-40) % [place] % (Auto) (3-14) % Eos % (Auto) (2-4) % Baso % (Auto) (0-2) % Neut # (Auto) (9409-0405) /uL Lymph # (Auto) (8292-0939) /uL [place] # (Auto) (0-900) /uL Eos # (Auto) (0-450) /uL Baso # (Auto) (0-100) /uL Sodium (137-145) mmol/L Potassium (3.4-5.1) mmol/L Chloride (98-107) mmol/L Carbon Dioxide (22-32) mmol/L BUN (7-17) mg/dL Creatinine (0.52-1.04) mg/dL Estimated GFR (>60) mL/min BUN/Creatinine Ratio (6-22) Glucose (80-110) mg/dL Calcium (8.4-10.2) mg/dL Magnesium (1.6-2.3) mg/dL Total Bilirubin (0.2-1.3) mg/dL AST (14-36) IU/L ALT (9-52) IU/L Alkaline Phosphatase (38-126) U/L Total Protein (6.3-8.2) g/dL Albumin (3.5-5.0) g/dL Globulin (1.7-4.1) g/dL Albumin/Globulin Ratio (1.0-2.8) Lipase (23-300) U/L Urine Color Yellow Urine Appearance Clear Urine pH 7.0 (4.5-8.0) Ur Specific [place] 1.020 (1.000-1.035) Urine Protein 1+ H (Negative) Urine Glucose (UA) Negative (Negative) g/dL Urine Ketones 2+ H (NEGATIVE) Urine Occult Blood Negative (Negative) Urine Nitrate Negative (Negative) Urine Bilirubin 2+ H (NEGATIVE) Urine Urobilinogen 1.0 (0.2) E.U./dL Ur Leukocyte Esterase Negative (NEGATIVE) Urine RBC None seen (0-5/HPF) Urine WBC 0-1/hpf (0-5/HPF) Ur Squamous Epith Cells 0-1 /hpf (0-5/HPF) Amorphous Sediment 1+ Urine Bacteria None seen (None) Urine Mucus 1+ H (Negative) Ur Culture Indicated? Cult not indicated Imaging Data Abdominal x-ray: Radiologist's impression: [address] [address] XRay Report Signed Patient: Екатерина Murphy [facility]#: [id number] : 9Acct:[id number] Age/Sex: 69 / FDate of Service: 06/24/19 Loc: ED Accession Number: [id number] Procedure: XR acute abdomen series Ordering Provider: Hiram Saldana D.O. PROCEDURE: XR ACUTE ABDOMEN SERIES INDICATIONS: persistent vomiting TECHNIQUE: One view chest and two views of the abdomen were acquired. COMPARISON: None. FINDINGS: Surgical changes and devices: None. Chest: Lungs are clear. Heart size is at the upper limits of normal. No pleu ral effusions. No pneumoperitoneum. Abdomen: Bowel gas pattern is abnormal with an unusually prominent degree of gas within the colon, measuring up to 7.6 cm in maximal transverse dimension but areas of definite small bowel distention are not found. No free air seen.. No suspicious calcif ications. Visualized solid organ contours appear normal. Bones: No suspicious bony lesions. IMPRESSION: Unusually prominent bowel gas which is predominantly colonic, and yet the transverse dimension of the colon does not reach the size criteria for definite distention and obstruction. Small bowel loops do not appear distended. No free air seen. Depending on clinical status followup by CT scanning may become necessary. Dictated by: Pj Alvares M.D. on 06/24/2019 at 14:03 Approved by: Pj Alvares M.D. on 06/24/2019 at 14:05 CT scan - abdomen: Radiologist's impression: [address] [address] [address] Scan Report Signed Patient: Екатерина Murphy [facility]#: [id number] : 9Acct:[id number] Age/Sex: 69 / FDate of Service: 06/24/19 Loc: ED Accession Number: [id number] Procedure: CT abdomen pelvis w con Ordering Provider: Hiram Saldana D.O. PROCEDURE: CT ABDOMEN PELVIS W CON INDICATIONS: persistent vomiting with distended bowel loops on x-ray TECHNIQUE: After the administration of intravenous contrast, 5 mm thick sections acquired from the diaphragm to the symphysis. 5 mm coronal and sagittal reformats were acquired. For radiation dose reduction, the following was used: automated exposure control, adjustment of mA and/or kV according to patient size. COMPARISON: [facility], CT, CT ABDOMEN PELVIS W CON, 06/20/2019, 11:31. [facility], CR, XR ACUTE ABDOMEN SERIES, 06/24/2019, 12:15. FINDINGS: Image quality: Excellent. ABDOMEN: Lung bases: There is mild dependent atelectasis. Heart size is enlarged. There is a small hiatal hernia. Solid organs: Evaluation of the liver demonstrates no focal hepatic lesions. The gallbladder appears within normal limits without calcified gallstones. Biliary system is non-dilated. Pancreas enhances normally. No peripancreatic fat stranding or fluid collections. No pancreatic duct dilatation. The spleen is normal in size. No adrenal nodules. Kidneys demonstrate no hydronephrosis. Peritoneum and bowel: Small bowel loops demonstrate normal wall thickness and caliber. The appendix is normal in appearance. There is mild gaseous distention of the transverse, descending, and proximal sigmoid colon, measuring up to 4.4 cm in diameter. No air-fluid levels. There is a transition point in the mid sigmoid colon without a discrete mass or focal bowel wall thickening. More distally, there is moderate gas and stool distention of the rectum. No free fluid or air. Nodes and vessels: No retroperitoneal or mesenteric adenopathy by size criteria. Aorta and inferior vena cava are normal in size. Miscellaneous: No ventral hernias. PELVIS: Genitourinary: Bladder wall thickness is normal. Miscellaneous: No inguinal hernias or adenopathy. Bones: No suspicious bony lesions. No vertebral body compression fractures. IMPRESSION: 1. Mild segmental gas distention of the colon involving the transverse through proximal sigmoid colon. The finding likely represents an ileus. A distal colonic obstr uction at the level of the mid sigmoid colon is in the differential but considered less likely. No discrete associated mass or wall thickening identified. No evidence of small bowel obstruction. Dictated by: Haroldo Carranza M.D. on 06/24/2019 at 15:33 Approved by: Haroldo Carranza M.D. on 06/24/2019 at 15:46 Discharge Plan Departure Patient Disposition: Admitted As Inpatient Clinical Impression: Acute duodenitis Intractable vomiting Qualifiers: Vomiting type: unspecified Nausea presence: with nausea Qualified Code(s): R11.2 - Nausea with vomiting, unspecified Discharge Date/Time: 06/24/19 17:10 Interventions: ED Discharge Assessment Last Done: 06/24/19 17:10 Admit Date/Time: 06/24/19 16:42 Admit Provider: Mojgan Rodríguez
[2019-06-24 12:28] LABS: Add Manual Diff / Slide Review NO; Basophils Absolute Auto 0 /uL (0-100); Basophils Percent Auto 0.4 % (0-2); Eosinophils Absolute Auto 0 /uL (0-450); Eosinophils Percent Auto 0.1 % (2-4); Hematocrit 37.9 % (36-46); Hemoglobin 13.3 g/dL (12.0-16.0); Lymphocytes Absolute Auto 1800 /uL (1100-4500); Lymphocytes Percent Auto 26.6 % (25-40); Mean Corpuscular Hemoglobin 32.3 PG (26-34); Mean Corpuscular Volume 92.3 fL (80-100); Monocytes Absolute Auto 600 /uL (0-900); Monocytes Percent Auto 9.4 % (3-14); Neutrophils Absolute Auto 4200 /uL (1500-7000); Neutrophils Percent Auto 63.5 % (50-75); Platelet Count 232 X10^3/uL (150-400); Red Blood Cell Count 4.11 X10^6/uL (4.0-5.2); Red Cell Distribution Width 14.7 % (11.6-14.8); White Blood Cell Count 6.6 X10^3/uL (4.5-11.0)
[2019-06-24] MEDS: ONDANSETRON 4 MG/2 ML INJ IV (12:28)
[2019-06-24] MEDS: SODIUM CHLORIDE 0.9% 1,000 ML 1000 ML IV (12:28)
[2019-06-24 12:40] LABS: Bacteria Urine None Seen; RBC Urine None Seen (0-5/HPF)
[2019-06-24 12:41] LABS: Alanine Aminotransferase 8 IU/L (9-52); Albumin 4.4 g/dL (3.5-5.0); Albumin Globulin Ratio 1.6 (1.0-2.8); Alkaline Phosphatase 44 U/L (38-126); Aspartate Aminotransferase 20 IU/L (14-36); Bilirubin Total 1.3 mg/dL (0.2-1.3); Blood Urea Nitrogen 21 mg/dL (7-17); Calcium 9.7 mg/dL (8.4-10.2); Carbon Dioxide 26 mmol/L (22-32); Chloride 92 mmol/L (98-107); Estimated Glomerular Filt Rate > 60.0 mL/min (>60); Globulin 2.7 g/dL (1.7-4.1); Glucose 126 mg/dL (80-110); HEMOLYSIS < 15 (0-50); Lipase 185 U/L (23-300); Sodium 136 mmol/L (137-145); Total Protein 7.1 g/dL (6.3-8.2)
[2019-06-24 12:43] LABS: Appearance Urine UA CLEAR; Bilirubin Urine UA 2+ (NEGATIVE); Color Urine UA YELLOW; Glucose Urine UA NEGATIVE (Negative); Ketones Urine UA 2+ (NEGATIVE); Leukocyte Esterase Urine UA NEGATIVE (NEGATIVE); Nitrite Urine UA NEGATIVE (Negative); Occult Blood Urine UA NEGATIVE (Negative); Protein Urine UA 1+ (Negative)
[2019-06-24 13:01] LABS: Amorphous Sediment Urine 1+; Squamous Epithelial Cell Urine 0-1 /HPF (0-5/HPF); WBC Urine 0-1/HPF (0-5/HPF)
[2019-06-24 13:02] LABS: Culture Indicated Urine Cult Not Indicated; Mucus Urine 1+ (Negative)
[2019-06-24 14:07] LABS: Magnesium 1.7 mg/dL (1.6-2.3)
[2019-06-24] MEDS: POTASSIUM CHLORIDE 80 MEQ in SODIUM CHLORIDE 0.9% 1,000 ML 130 ML IV (14:40)
--- NOTE | 2019-06-24 14:44 | DI.CT.S_ITS ---
PROCEDURE: CT ABDOMEN PELVIS W CON INDICATIONS: persistent vomiting with distended bowel loops on x-ray TECHNIQUE: After the administration of intravenous contrast, 5 mm thick sections acquired from the diaphragm to the symphysis. 5 mm coronal and sagittal reformats were acquired. For radiation dose reduction, the following was used: automated exposure control, adjustment of mA and/or kV according to patient size. COMPARISON: [facility], CT, CT ABDOMEN PELVIS W CON, 06/20/2019, 11:31. [facility], CR, XR ACUTE ABDOMEN SERIES, 06/24/2019, 12:15. FINDINGS: Image quality: Excellent. ABDOMEN: Lung bases: There is mild dependent atelectasis. Heart size is enlarged. There is a small hiatal hernia. Solid organs: Evaluation of the liver demonstrates no focal hepatic lesions. The gallbladder appears within normal limits without calcified gallstones. Biliary system is non-dilated. Pancreas enhances normally. No peripancreatic fat stranding or fluid collections. No pancreatic duct dilatation. The spleen is normal in size. No adrenal nodules. Kidneys demonstrate no hydronephrosis. Peritoneum and bowel: Small bowel loops demonstrate normal wall thickness and caliber. The appendix is normal in appearance. There is mild gaseous distention of the transverse, descending, and proximal sigmoid colon, measuring up to 4.4 cm in diameter. No air-fluid levels. There is a transition point in the mid sigmoid colon without a discrete mass or focal bowel wall thickening. More distally, there is moderate gas and stool distention of the rectum. No free fluid or air. Nodes and vessels: No retroperitoneal or mesenteric adenopathy by size criteria. Aorta and inferior vena cava are normal in size. Miscellaneous: No ventral hernias. PELVIS: Genitourinary: Bladder wall thickness is normal. Miscellaneous: No inguinal hernias or adenopathy. Bones: No suspicious bony lesions. No vertebral body compression fractures. IMPRESSION: 1. Mild segmental gas distention of the colon involving the transverse through proximal sigmoid colon. The finding likely represents an ileus. A distal colonic obstruction at the level of the mid sigmoid colon is in the differential but considered less likely. No discrete associated mass or wall thickening identified. No evidence of small bowel obstruction. Dictated by: Haroldo Carranza M.D. on 06/24/2019 at 15:33 Approved by: Haroldo Carranza M.D. on 06/24/2019 at 15:46
--- NOTE | 2019-06-24 16:59 | PC.NURSE ---
tenderness left lower abdominal.
[2019-06-24] MEDS: PANTOPRAZOLE 40 MG VIAL 80 MG IV (17:03)
--- NOTE | 2019-06-24 17:07 | PM.CN ---
History of Present Illness Date Patient Seen: 06/24/19 Time Patient Seen: 17:09 Chief complaint: N/V Reason for consult: Sigmoid stricture and duodenitis Narrative: 69-year-old female status post multiple strokes now with significant left-sided contractures and aphasia. Acquaintance reports both right and left-sided strokes. She now presents with approximately 3 weeks of nausea involve bending and inability to take adequate p.o. or take medications at home. Reports timing of this coincided with a severe upper respiratory tract infection. She still is producing upper airway phlegm. Does not feel has an adequate cough to expel. There is associated absence of bowel movement x3 weeks, patient reports she is not having flatus as well, some abdominal distension, periumbilical and left lower quadrant abdominal pain. Overall doing poorly. Was seen emergency department several days ago discharged home but has failed to be able to take adequate nutrition and fluids. In the emergency department white blood cell count 6.6, hematocrit 37.9, potassium 3, creatinine 0.5. A CT abdomen and pelvis shows significant 1st in proximal 2nd portion duodenal thickening, in addition there is an apparent stricture at the distal sigmoid colon near the rectosigmoid junction. Patient has never had a colonoscopy, no family history of colon or rectal cancer, unknown if there is a family history of polyps No prior history of peptic ulcer disease, not on PPI COUNT INCLUDES THE [facility] Medical History CVA (cerebral vascular accident) (Acute) Hypertension (Acute) Comment: Please note history is quite difficult to obtain, patient is aphasic -able to the not to yes and no questions, accompanied by house mate who knows the patient moderately well, no family Meds Home Medications Medication Instructions Recorded Confirmed Type carvedilol [Coreg] 6.25 mg PO BID #30 tab 06/22/17 06/24/19 Rx mirtazapine 30 mg PO BEDTIME #0 06/22/17 06/24/19 History sertraline 25 mg PO DAILY #0 06/22/17 06/24/19 History albuterol sulfate [Ventolin HFA] 1 puff INHALATION PRN PRN 06/20/19 06/24/19 History amlodipine 10 mg PO DAILY 06/20/19 06/24/19 History azithromycin 250 mg PO DAILYX4 06/20/19 06/24/19 History clopidogrel 75 mg PO DAILY 06/20/19 06/24/19 History omeprazole 20 mg PO DAILY #14 cap 06/20/19 06/24/19 Rx ondansetron 4 mg TRANSLINGUAL Q8H PRN 06/20/19 06/24/19 History zolpidem 5 mg PO BEDTIME PRN 06/20/19 06/24/19 History Allergies Allergy/AdvReac Type Severity Reaction Status Date / Time No Known Drug Allergies Allergy Verified 06/24/19 12:20 Review of Systems Review of Systems unobtainable due to mental condition and unobtainable due to mental status Exam Vital Signs (past 8 hours): - 06/24/19 12:10 06/24/19 12:30 06/24/19 13:00 Pulse Rate 77 63 62 Respiratory Rate 16 17 13 Blood Pressure 154/72 H Blood Pressure [Left Arm] 150/73 H 136/78 Pulse Oximetry 98 96 95 06/24/19 14:00 06/24/19 14:43 06/24/19 16:01 Pulse Rate 66 73 Respiratory Rate 12 11 L 16 Blood Pressure Blood Pressure [Left Arm] 148/72 H 151/76 H 153/74 H Pulse Oximetry 95 96 Oxygen Delivery Method Room Air Narrative Exam Narrative: Patient was substantial weakness on left side, unable to form words, nods yes or no with understanding, looks ill Const General: cooperative Orientation: alert HENMT Nose: nares normal Eyes Conjunctivae: conjunctivae normal Sclera: sclerae normal Chest Other: Audible upper respiratory rattle, vesicular breath sounds without adventitial sound Cardio Rhythm: regular rhythm Heart Sounds: S1 normal, S2 normal, no gallops, no murmurs and no rubs GI Other: Abdomen soft moderately distended tympanitic, greatest tenderness to palpation is in the left lower quadrant, minimal right-sided epigastric tenderness Skin General: no rashes or lesions noted Neuro General: awake Psych Appearance: grossly normal Affect: normal affect Objective Labs Result Diagrams: 06/24/19 12:20 06/24/19 12:20 Labs: Laboratory Results - last 24 hr 06/24/19 06/24/19 06/24/19 12:20 12:20 12:20 WBC 6.6 RBC 4.11 Hgb 13.3 Hct 37.9 MCV 92.3 MCH 32.3 MCHC 35.0 RDW 14.7 Plt Count 232 Neut % (Auto) 63.5 Lymph % (Auto) 26.6 [place] % (Auto) 9.4 Eos % (Auto) 0.1 L Baso % (Auto) 0.4 Neut # (Auto) 4200 Lymph # (Auto) 1800 [place] # (Auto) 600 Eos # (Auto) 0 Baso # (Auto) 0 Sodium 136 L Potassium 3.0 L Chloride 92 L Carbon Dioxide 26 BUN 21 H Creatinine 0.50 L Estimated GFR > 60.0 BUN/Creatinine Ratio 42.0 H Glucose 126 H Calcium 9.7 Magnesium 1.7 Total Bilirubin 1.3 AST 20 ALT 8 L Alkaline Phosphatase 44 Total Protein 7.1 Albumin 4.4 Globulin 2.7 Albumin/Globulin Ratio 1.6 Lipase 185 Urine Color Urine Appearance Urine pH Ur Specific [place] Urine Protein Urine Glucose (UA) Urine Ketones Urine Occult Blood Urine Nitrate Urine Bilirubin Urine Urobilinogen Ur Leukocyte Esterase Urine RBC Urine WBC Ur Squamous Epith Cells Amorphous Sediment Urine Bacteria Urine Mucus Ur Culture Indicated? 06/24/19 12:30 WBC RBC Hgb Hct MCV MCH MCHC RDW Plt Count Neut % (Auto) Lymph % (Auto) [place] % (Auto) Eos % (Auto) Baso % (Auto) Neut # (Auto) Lymph # (Auto) [place] # (Auto) Eos # (Auto) Baso # (Auto) Sodium Potassium Chloride Carbon Dioxide BUN Creatinine Estimated GFR BUN/Creatinine Ratio Glucose Calcium Magnesium Total Bilirubin AST ALT Alkaline Phosphatase Total Protein Albumin Globulin Albumin/Globulin Ratio Lipase Urine Color Yellow Urine Appearance Clear Urine pH 7.0 Ur Specific [place] 1.020 Urine Protein 1+ H Urine Glucose (UA) Negative Urine Ketones 2+ H Urine Occult Blood Negative Urine Nitrate Negative Urine Bilirubin 2+ H Urine Urobilinogen 1.0 Ur Leukocyte Esterase Negative Urine RBC None seen Urine WBC 0-1/hpf Ur Squamous Epith Cells 0-1 /hpf Amorphous Sediment 1+ Urine Bacteria None seen Urine Mucus 1+ H Ur Culture Indicated? Cult not indicated Assessment & Plan Assessment & Plan narrative: 69-year-old woman presents with 3 weeks of nausea vomiting failure to thrive in the setting of multiple strokes and aphasia. It seems likely she has some neurocognitive pharyngeal dysfunction contributing to a poor swallow. In addition by CT scan she has what looks to be acute or subacute duodenitis, and a stricture at her distal sigmoid colon. The stricture does not appear to be significantly obstructing as there is significant stool and gas distal to it. Recommendation: Speech evaluation Will set up for EGD tomorrow -to evaluate for peptic duodenitis Recommend high-dose IV PPI In addition will perform sigmoidoscopy to evaluate radiographic distal sigmoid stricture -no prep planned, unable to keep liquids down. NPO at midnight
--- NOTE | 2019-06-24 21:22 | PC.NURSE ---
Qing shift note: Failed swallow evaluation performed by this RN. Unable to swallow on command or elicit a cough, to remain NPO, prompted for swallow evaluation with speech therapy. Maranda DEGROOT made aware. High risk for aspiration, precautions initiated. HOB elevated, head in neutral position, NPO. Congested cough noted, managing secretions with yankeur suction as needed. Monitoring closely.
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
[2019-06-25] VITALS (16 sets, daily range): BP systolic 126–157; BP diastolic 71–94; PULSE 60–94; RESP 13–19; TEMP 36.2–37.1; O2SAT 94–99; BMI 16.0
--- NOTE | 2019-06-25 | PATH_ITS ---
[facility] Accession Number: [id number] . 01 Material submitted: . duodenum - DUODENAL BIOPSY . 01 Clinical history: . N/V . 02 Diagnosis: Duodenum, Biopsy: Duodenal mucosa with no diagnostic abnormality. Negative for active inflammation, features of sprue, dysplasia and malignancy. MRV/06/26/2019 . 02 Electronically signed: . Ashley Thompson MD, Pathologist NPI- [id number] . 01 Gross description: . DUODENAL BIOPSY: Received in formalin are 2 fragment(s) of schmidt, soft tissue measuring 0.1 x 0.1 x 0.1 cm to 0.3 x 0.2 x 0.2 cm which is entirely submitted and submitted entirely in 1 cassette(s) /DMC /DMC . 02 Pathologist provided ICD-10: R11.2 . 02 CPT . 206371 Performed at: 01 [facility] [address] [place], [place], [place] [id number] MD Haroldo Thompson MD Phone: [phone] Performed at: 02 [facility] [address] [place], [place] [id number] MD Ashley Thompson MD Phone: [phone]
[2019-06-25] MEDS: LORazepam 2 MG/ML INJ 0.5 MG IV (00:29)
[2019-06-25 05:36] LABS: Add Manual Diff / Slide Review NO; Basophils Absolute Auto 0 /uL (0-100); Basophils Percent Auto 0.3 % (0-2); Eosinophils Absolute Auto 0 /uL (0-450); Eosinophils Percent Auto 0.6 % (2-4); Hematocrit 35.2 % (36-46); Hemoglobin 12.2 g/dL (12.0-16.0); Lymphocytes Absolute Auto 2100 /uL (1100-4500); Lymphocytes Percent Auto 30.5 % (25-40); Mean Corpuscular HGB Conc 34.5 % (30-36); Mean Corpuscular Hemoglobin 32.1 PG (26-34); Monocytes Absolute Auto 800 /uL (0-900); Neutrophils Absolute Auto 4000 /uL (1500-7000); Neutrophils Percent Auto 56.6 % (50-75); Platelet Count 204 X10^3/uL (150-400); Red Blood Cell Count 3.78 X10^6/uL (4.0-5.2); Red Cell Distribution Width 14.5 % (11.6-14.8)
[2019-06-25 05:43] LABS: BUN Creatinine Ratio 22.5 (6-22); Blood Urea Nitrogen 9 mg/dL (7-17); Calcium 8.2 mg/dL (8.4-10.2); Carbon Dioxide 25 mmol/L (22-32); Chloride 99 mmol/L (98-107); Estimated Glomerular Filt Rate > 60.0 mL/min (>60); Glucose 101 mg/dL (80-110); HEMOLYSIS < 15 (0-50); Potassium 2.8 mmol/L (3.4-5.1); Sodium 136 mmol/L (137-145)
--- NOTE | 2019-06-25 06:13 | PC.NURSE ---
ZANE Gaxiola notified with low Potassium level of 2.8.
[2019-06-25] MEDS: POTASSIUM CHLORIDE 60 MEQ in SODIUM CHLORIDE 0.9% 500 ML 88.333 ML IV (06:30)
--- NOTE | 2019-06-25 06:39 | PC.NURSE ---
Order received to infuse 60 meq of Potassium IVPB, infusing @ 88.3 mls./hour.
[2019-06-25] MEDS: ONDANSETRON 4 MG/2 ML INJ IV (08:20)
[2019-06-25] MEDS: PANTOPRAZOLE 40 MG VIAL IV (08:21)
[2019-06-25] MEDS: SODIUM CHLORIDE 0.9% FLUSH 10 ML IV (08:24)
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
[2019-06-25 11:30] LABS: Adenovirus Not Detected (Not Detect); Bordetella pertussis Not Detected (Not Detect); Chlamydophila pneumoniae Not Detected (Not Detect); Coronavirus 229E Not Detected (Not Detect); Coronavirus HKU1 Not Detected (Not Detect); Coronavirus NL 63 Not Detected (Not Detect); Coronavirus OC43 Not Detected (Not Detect); Human Metapneumovirus Not Detected (Not Detect); Human Rhinovirus/Enterovirus Not Detected (Not Detect); Influenza A Not Detected (Not Detect); Influenza B Not Detected (Not Detect); Mycoplasma pneumoniae Not Detected (Not Detect); Parainfluenza Virus 1 Not Detected (Not Detect); Parainfluenza Virus 2 Not Detected (Not Detect); Parainfluenza Virus 3 Not Detected (Not Detect); Parainfluenza Virus 4 Not Detected (Not Detect); Respiratory Syncytial Virus Not Detected (Not Detect)
--- NOTE | 2019-06-25 13:29 | PC.NURSE ---
Day shift: Pt off unit for procedure at 1330.
[2019-06-25] MEDS: SODIUM CHLORIDE 0.9% 1,000 ML 50 ML IV (13:55)
--- NOTE | 2019-06-25 14:11 | PM.PN.1 ---
Subjective Date Patient Seen: 06/25/19 Interval history: The patient is a 69-year-old female with a history of aphasia following multiple strokes. She is brought to the hospital for nausea vomiting and inability to eat. History is obtained from her significant other check had lung. Reports that in March the patient had a tooth extraction. She was given antibiotics and following that he noted decrease in her ability to eat. She typically is able to eat usual amount of food. Over the past several weeks she has been eating less and less such that about a week ago she stopped eating altogether. Because her oral intake had decreased he brought her to the hospital for evaluation. Patient is maintained at home. She has caregivers 5 hours a day. He provides most of her meals for her and she remains at home. The patient has been seen by surgery. She is awaiting EGD and sigmoidoscopy. CT scanning showed what looked like possible duodenitis. Of CT scan also showed a possible stricture involving the sigmoid colon. Exam Vital Signs (past 8 hours): - 06/25/19 08:00 06/25/19 08:24 06/25/19 12:00 Temperature 97.7 F 97.3 F L Pulse Rate 69 78 Respiratory Rate 16 15 Blood Pressure 134/74 137/91 H Pulse Oximetry 97 98 97 06/25/19 13:40 Temperature 97.3 F L Pulse Rate 73 Respiratory Rate 13 Blood Pressure 148/89 H Pulse Oximetry 99 Oxygen Delivery Method Room Air Oxygen Flow Rate 0 Narrative Exam Narrative: Pleasant female alert and in no obvious distress Lungs: Clear to auscultation Cardiac exam: Regular rate rhythm normal S1-S2 with a 2/6 systolic ejection murmur Abdomen: Soft mild midepigastric tenderness. No rebound tenderness. No palpable masses. No board-like rigidity. Extremities: No edema Neuro exam: Patient is aphasic, she has a dense right hemiparesis. Objective Labs Result Diagrams: 06/25/19 04:59 06/25/19 04:59 Labs: Laboratory Results - last 24 hr 06/25/19 06/25/19 06/25/19 04:59 04:59 10:00 WBC 7.0 RBC 3.78 L Hgb 12.2 Hct 35.2 L MCV 93.0 MCH 32.1 MCHC 34.5 RDW 14.5 Plt Count 204 Neut % (Auto) 56.6 Lymph % (Auto) 30.5 [place] % (Auto) 12.0 Eos % (Auto) 0.6 L Baso % (Auto) 0.3 Neut # (Auto) 4000 Lymph # (Auto) 2100 [place] # (Auto) 800 Eos # (Auto) 0 Baso # (Auto) 0 Sodium 136 L Potassium 2.8 L Chloride 99 Carbon Dioxide 25 BUN 9 Creatinine 0.40 L Estimated GFR > 60.0 BUN/Creatinine Ratio 22.5 H Glucose 101 Calcium 8.2 L Chlamy pneumoniae PCR Not detected Adenovirus (PCR) Not detected B.parapertussis DNA PCR Not detected Coronavirus OC43 (PCR) Not detected Coronavirus HKU1 (PCR) Not detected Coronavirus 229E (PCR) Not detected Coronavirus NL63 (PCR) Not detected Human Metapneumovir PCR Not detected Influenza Type A (PCR) Not detected Influenza Type B (PCR) Not detected M. pneumoniae (PCR) Not detected Parainfluenza 1 (PCR) Not detected Parainfluenza 2 (PCR) Not detected Parainfluenza 3 (PCR) Not detected Parainfluenza 4 (PCR) Not detected RSV (PCR) Not detected Entero/Rhino (PCR) Not detected Assessment & Plan Assessment & Plan narrative: 1. 69-year-old female admitted with intractable nausea and vomiting. She has evidence of duodenitis on CT scan. Patient also has minimal tenderness on abdominal exam. Question is whether she has an ulcer, stricture, or other intra-abdominal abnormality. Patient is awaiting EGD for further evaluation. She will have a speech evaluation pending the results of her EGD study. 2. History of stroke, present on admission 3. Aphasia, present on admission 4. Hypertension, chronic 5. Depression, chronic 6. Hypokalemia, present on admission, will replace
--- NOTE | 2019-06-25 14:34 | P.PN_ITS ---
Subjective Date Patient Seen: 06/25/19 Time Patient Seen: 14:32 Interval history: Patient seen in exam -minimally changed from consult note written yesterday Plan for EGD to evaluate for peptic duodenitis as well as sigmoidoscopy to evaluate for sigmoid stricture Consent obtained All questions answered Risks benefits of procedure discussed Including hypoxia, perforation, injury to colon, injury to esophagus stomach 1st portion of intestine. Risks of sedation including aspiration Patient ready to proceed Exam Vital Signs (past 8 hours): - 06/25/19 08:00 06/25/19 08:24 06/25/19 12:00 Temperature 97.7 F 97.3 F L Pulse Rate 69 78 Respiratory Rate 16 15 Blood Pressure 134/74 137/91 H Pulse Oximetry 97 98 97 06/25/19 13:40 Temperature 97.3 F L Pulse Rate 73 Respiratory Rate 13 Blood Pressure 148/89 H Pulse Oximetry 99 Oxygen Delivery Method Room Air Oxygen Flow Rate 0 Objective Labs Result Diagrams: 06/25/19 04:59 06/25/19 04:59 Labs: Laboratory Results - last 24 hr 06/25/19 06/25/19 06/25/19 04:59 04:59 10:00 WBC 7.0 RBC 3.78 L Hgb 12.2 Hct 35.2 L MCV 93.0 MCH 32.1 MCHC 34.5 RDW 14.5 Plt Count 204 Neut % (Auto) 56.6 Lymph % (Auto) 30.5 [place] % (Auto) 12.0 Eos % (Auto) 0.6 L Baso % (Auto) 0.3 Neut # (Auto) 4000 Lymph # (Auto) 2100 [place] # (Auto) 800 Eos # (Auto) 0 Baso # (Auto) 0 Sodium 136 L Potassium 2.8 L Chloride 99 Carbon Dioxide 25 BUN 9 Creatinine 0.40 L Estimated GFR > 60.0 BUN/Creatinine Ratio 22.5 H Glucose 101 Calcium 8.2 L Chlamy pneumoniae PCR Not detected Adenovirus (PCR) Not detected B.parapertussis DNA PCR Not detected Coronavirus OC43 (PCR) Not detected Coronavirus HKU1 (PCR) Not detected Coronavirus 229E (PCR) Not detected Coronavirus NL63 (PCR) Not detected Human Metapneumovir PCR Not detected Influenza Type A (PCR) Not detected Influenza Type B (PCR) Not detected M. pneumoniae (PCR) Not detected Parainfluenza 1 (PCR) Not detected Parainfluenza 2 (PCR) Not detected Parainfluenza 3 (PCR) Not detected Parainfluenza 4 (PCR) Not detected RSV (PCR) Not detected Entero/Rhino (PCR) Not detected
--- NOTE | 2019-06-25 14:38 | PC.NURSE ---
Day shift: Pt remain off of AC unit at this time.
[2019-06-25] MEDS: fentaNYL 250 MCG/5 ML INJ IV (14:47)
[2019-06-25] MEDS: MIDAZOLAM 5 MG/5 ML VIAL IV (14:48)
--- NOTE | 2019-06-25 15:03 | DIET.PN ---
Dietary Progress Note Assessment: 69 yof referred for N/V, severe decrease in PO's and unintentional weight loss over the last 5 weeks. Significant other reports she had a tooth extraction in March where she was given antibiotics. States noticeable decreased PO's since and has not eaten at all in the last 5 days. She has a history of CVA and HTN. Per records her weight was 51.1kg in the ED 06/20/19. She is scheduled for an EGD. HT: 162.56cm WT: 42.5kg BMI: 16.1 Wt HX: 51.1kg (06/20) 49.9 (06/24) MNA: 4 (malnourished) Diet: NPO Labs: Na: 136 K: 2.8 Cr: 0.40 Nutrition Diagnosis: Severe Chronic malnutrition r/t altered GI function aeb energy intake <50% EER x 5 weeks, GI symptoms (N/V) > 1 week, BMI less than normative standards for age (>65yo <21), weight loss >5 % in 1 mo. EER: [id number] enrike @ 30-35 enrike/kg Pro: 55-64g @ 1.3-1.5g/kg Interventions: 1. Will monitor need for Tube feeding recs is required. 2. ONS ensure enlive BID-TID as diet progresses. Monitoring/Evaluations: Diet progression, weight, related labs.
--- NOTE | 2019-06-25 15:23 | P.OP.ENDO_ITS ---
Operative Date/Time/Diagnoses Date of procedure: 06/25/19 Time of procedure: 15:14 Pre-op diagnosis: Duodenitis, question of distal sigmoid colon stricture Post-op diagnosis: other (Duodenitis with punctate petechia, no sigmoid colon stricture) Procedure & Clinicians Study performed: EGD -with duodenal biopsies Sigmoidoscopy Same procedure as scheduled: Yes Indications: 69-year-old female presents with nausea and vomiting for approximately [address] scan performed which identified 1st and 2nd portion duodenitis as well as a question of a stricture of the distal sigmoid colon Surgeon: Herve Gregorio Procedure Notes SCOAP/Timeout: Completed Procedure in detail: The patient was brought to the endoscopy suite a time-out was completed. She was sedated over the entire course of procedure with 1 mg of midazolam 50 micro g of fentanyl. A bite block was placed endoscope was easily advanced through the hypopharynx and passed posterior to the epiglottis into the cervical esophagus it was passed with ease down the esophagus through the hiatus and into the stomach. The stomach was carefully inspected there were healthy gastric folds -carefully inspecting the antrum there were no antral ulcers or pre-pyloric ulcers. The pylorus was crossed and the scope was advanced through the duodenum -there is no stricturing of the duodenum its the scope was passed to the 4th portion of duodenum and into the proximal jejunum -the impression and pulse additions of the aorta on the duodenum were recognized. The scope was then slowly withdrawn visualizing the mucosa of the duodenum -there is no stenosis, in general the mucosa appeared healthy. Within the duodenal bulb there was however mild generalized erythema and punctate areas of bright red. The area most effective was biopsied. There were no duodenal ulcers. The stomach was reinspected again and no gastric ulcers were identified, the scope was retroflexed visualizing a moderate size type 1 paraesophageal hernia with a Hill grade 4 valve. Withdrawing the endoscope through the esophagus there were no lesions -there were tenacious secretions within the esophagus We then proceeded to perform the sigmoidoscopy -due to the possible presence of a stricture in EGD endoscope was used. A digital rectal exam was performed there was abundant stool within the rectal vault. No lesions detected. Endoscope was advanced through the folds of the rectum without difficulty into the sigmoid colon -and passed easily through the sigmoid colon to 60 cm. No stricture was identified. There was a somewhat tight curve just proximal to the rectosigmoid junction -but no stenosis whatsoever in this area. The colon in general appeared healthy Scope withdrawal time: NA Sedation minutes: 31 Specimen(s): other (Duodenal biopsy) Complications: none Impression: 1. Mild generalized duodenitis in the 1st portion of the duodenum - biopsies pending, no ulceration 2. Type 1 paraesophageal hernia 3. No sigmoid or rectosigmoid stricture -consequently no a partial bowel obstruction at this area Recommendations: Other recommendation (No follow-up endoscopy) Plan for aftercare: To floor for ongoing workup of nausea vomiting Follow-up duodenal biopsy Follow up: as needed Disposition: PACU
--- NOTE | 2019-06-25 15:25 | P.PN_ITS ---
Subjective Date Patient Seen: 06/25/19 Time Patient Seen: 15:23 Interval history: Brief general surgery note EGD recently performed -mild duodenitis without evidence of gastric outlet obstruction or ulceration, may be H pylori related No evidence of large bowel obstruction partial or otherwise endoscopically. Recommendation Follow-up duodenum biopsy Obtain H pylori stool antigen -I have ordered No bowel obstruction and consequently can advance diet when tolerates food given history of nausea Exam Vital Signs (past 8 hours): - 06/25/19 08:00 06/25/19 08:24 06/25/19 12:00 Temperature 97.7 F 97.3 F L Pulse Rate 69 78 Respiratory Rate 16 15 Blood Pressure 134/74 137/91 H Pulse Oximetry 97 98 97 06/25/19 13:40 Temperature 97.3 F L Pulse Rate 73 Respiratory Rate 13 Blood Pressure 148/89 H Pulse Oximetry 99 Oxygen Delivery Method Room Air Oxygen Flow Rate 0 Objective Labs Result Diagrams: 06/25/19 04:59 06/25/19 04:59 Labs: Laboratory Results - last 24 hr 06/25/19 06/25/19 06/25/19 04:59 04:59 10:00 WBC 7.0 RBC 3.78 L Hgb 12.2 Hct 35.2 L MCV 93.0 MCH 32.1 MCHC 34.5 RDW 14.5 Plt Count 204 Neut % (Auto) 56.6 Lymph % (Auto) 30.5 [place] % (Auto) 12.0 Eos % (Auto) 0.6 L Baso % (Auto) 0.3 Neut # (Auto) 4000 Lymph # (Auto) 2100 [place] # (Auto) 800 Eos # (Auto) 0 Baso # (Auto) 0 Sodium 136 L Potassium 2.8 L Chloride 99 Carbon Dioxide 25 BUN 9 Creatinine 0.40 L Estimated GFR > 60.0 BUN/Creatinine Ratio 22.5 H Glucose 101 Calcium 8.2 L Chlamy pneumoniae PCR Not detected Adenovirus (PCR) Not detected B.parapertussis DNA PCR Not detected Coronavirus OC43 (PCR) Not detected Coronavirus HKU1 (PCR) Not detected Coronavirus 229E (PCR) Not detected Coronavirus NL63 (PCR) Not detected Human Metapneumovir PCR Not detected Influenza Type A (PCR) Not detected Influenza Type B (PCR) Not detected M. pneumoniae (PCR) Not detected Parainfluenza 1 (PCR) Not detected Parainfluenza 2 (PCR) Not detected Parainfluenza 3 (PCR) Not detected Parainfluenza 4 (PCR) Not detected RSV (PCR) Not detected Entero/Rhino (PCR) Not detected
--- NOTE | 2019-06-25 15:28 | SUR.PHASEI ---
report to Thao RONQUILLO
--- NOTE | 2019-06-25 15:49 | SUR.OPER ---
TOLERATED WELL, VITAL SIGNS STABLE ,SEE STRIPS, INCONTINENET LARGE AMOUT OF URINE
[2019-06-25] MEDS: LORazepam 2 MG/ML INJ IV (21:54)
[2019-06-26] VITALS (10 sets, daily range): BP systolic 133–155; BP diastolic 71–105; PULSE 74–92; RESP 16–20; TEMP 36.3–36.9; O2SAT 94–98
--- NOTE | 2019-06-26 00:59 | PC.NURSE ---
Patient is unable to verbalize related to hx of CVA. Does write responses to questions although not always able to read what she writes. Also nods/shakes head to communicate yes/no. Knew her name, date and age but wrote she is in [place]. Breath sounds diminished but CTA although has moist sounding respirations; RA sat 95%. HRR. Denies nausea. BT hypoactive; abdomen is soft. Incontinent of urine so wearing incontinent brief. Due to CVA is unable to move left UE and has hand contractures and is only able to minimally move left LE. Weak in right extremities as well. Unable to turn self so is being repositioned q2h. Currently NPO as has not passed swallow eval so po care given when repositioned. Denies pain. Wearing bilateral SCD's. Fall risk score is high and bed alarm is activated.
[2019-06-26 05:23] LABS: Add Manual Diff / Slide Review NO; Basophils Absolute Auto 0 /uL (0-100); Basophils Percent Auto 0.3 % (0-2); Eosinophils Absolute Auto 0 /uL (0-450); Eosinophils Percent Auto 0.3 % (2-4); Hemoglobin 11.9 g/dL (12.0-16.0); Lymphocytes Absolute Auto 2900 /uL (1100-4500); Lymphocytes Percent Auto 28.8 % (25-40); Mean Corpuscular HGB Conc 34.9 % (30-36); Mean Corpuscular Hemoglobin 32.1 PG (26-34); Monocytes Absolute Auto 1100 /uL (0-900); Monocytes Percent Auto 11.2 % (3-14); Neutrophils Absolute Auto 5900 /uL (1500-7000); Neutrophils Percent Auto 59.4 % (50-75); Platelet Count 189 X10^3/uL (150-400); Red Cell Distribution Width 14.5 % (11.6-14.8)
[2019-06-26 05:41] LABS: BUN Creatinine Ratio 17.5 (6-22); Blood Urea Nitrogen 7 mg/dL (7-17); Calcium 7.8 mg/dL (8.4-10.2); Carbon Dioxide 24 mmol/L (22-32); Chloride 99 mmol/L (98-107); Estimated Glomerular Filt Rate > 60.0 mL/min (>60); Glucose 95 mg/dL (80-110); HEMOLYSIS < 15 (0-50); Potassium 3.1 mmol/L (3.4-5.1); Sodium 136 mmol/L (137-145)
[2019-06-26] MEDS: SODIUM CHLORIDE 0.9% FLUSH 10 ML IV (09:25)
[2019-06-26] MEDS: PANTOPRAZOLE 40 MG VIAL IV (09:25)
--- NOTE | 2019-06-26 10:02 | DI.RAD.S_ITS ---
PROCEDURE: FL BARIUM SWALLOW W SPEECH INDICATIONS: swallowing difficulty TECHNIQUE: Examination was conducted in conjunction with speech pathology per standard protocol. In the lateral projection, filming was performed of the patient swallowing. AP projection filming may also be performed with patient swallowing. COMPARISON: None. FINDINGS: Function: The oral preparatory phase appears normal, with proper containment. The subsequent oral propulsive phase, pharyngeal phase, and esophageal phase of swallowing also appear normal with all proffered substances. There was oliver, silent aspiration with nectar consistency barium. Morphology: No cricopharyngeal bar is identified. No cervical esophageal webs. No Zenker's diverticulum. No strictures. IMPRESSION: Silent tracheal aspiration. Dictated by: Leon Gaxiola M.D. on 06/26/2019 at 16:27 Approved by: Leon Gaxiola M.D. on 06/26/2019 at 16:28
[2019-06-26] MEDS: ONDANSETRON 4 MG/2 ML INJ IV (12:15)
--- NOTE | 2019-06-26 13:35 | P.PN_ITS ---
Subjective Date Patient Seen: 06/26/19 Interval history: The patient is a 69-year-old female who was admitted to the hospital for difficulty swallowing and inability to eat. The patient has had multiple strokes in the past and is aphasic with a dense left hemiparesis. She lives at home with her who prepares most of her meals. In addition she has 5 hours of nelly workers who come in to help as well. The patient underwent an upper endoscopy yesterday which showed duodenitis but no evidence of ulcer, or stricture. The patient also had a sigmoidoscopy which showed no colonic stricture. Following the procedure she had significant pooling of secretions. She has required suctioning. She is awaiting a modified barium swallow evaluation at this time. Exam Vital Signs (past 8 hours): - 06/26/19 09:00 Temperature 98.3 F Pulse Rate 81 Respiratory Rate 16 Blood Pressure 133/78 Pulse Oximetry 95 Oxygen Delivery Method Room Air Oxygen Flow Rate 0 Narrative Exam Narrative: Ill-appearing female Lungs: Decreased breath sounds but clear to auscultation Cardiac exam: Regular rate and rhythm normal S1-S2 Abdomen: Soft and nontender Extremities: No edema Neuro exam: Left upper extremity contractures, patient is aphasic, she is nonverbal Objective Labs Result Diagrams: 06/26/19 05:04 06/26/19 05:04 Labs: Laboratory Results - last 24 hr 06/26/19 06/26/19 05:04 05:04 WBC 10.0 RBC 3.70 L Hgb 11.9 L Hct 34.0 L MCV 92.0 MCH 32.1 MCHC 34.9 RDW 14.5 Plt Count 189 Neut % (Auto) 59.4 Lymph % (Auto) 28.8 [place] % (Auto) 11.2 Eos % (Auto) 0.3 L Baso % (Auto) 0.3 Neut # (Auto) 5900 Lymph # (Auto) 2900 [place] # (Auto) 1100 H Eos # (Auto) 0 Baso # (Auto) 0 Sodium 136 L Potassium 3.1 L Chloride 99 Carbon Dioxide 24 BUN 7 Creatinine 0.40 L Estimated GFR > 60.0 BUN/Creatinine Ratio 17.5 Glucose 95 Calcium 7.8 L Assessment & Plan Assessment & Plan narrative: Assessment & Plan narrative: 1. 69-year-old female admitted with intractable nausea and vomiting. She has evidence of duodenitis on CT scan. Patient also has minimal tenderness on abdominal exam. Question is whether she has an ulcer, stricture, or other intra-abdominal abnormality. Patient is awaiting EGD for further evaluation. She will have a speech evaluation pending the results of her EGD study. EGD completed about no evidence of stricture, ulcer, or explanation for eating disorder. The patient has duodenitis. She will continue on a PPI. 2. History of stroke, present on admission 3. Aphasia, present on admission 4. Hypertension, chronic 5. Depression, chronic 6. Hypokalemia, present on admission, will replace 7. Moderate to severe protein calorie malnutrition
[2019-06-26] MEDS: KCL 40 MEQ IN NS 1,000 ML 84 MEQ IV (14:31)
[2019-06-26] MEDS: ENOXAPARIN 40 MG/0.4 ML SYRINGE SUBCUT (17:09)
--- NOTE | 2019-06-26 17:25 | ST.SWALLOW ---
Care Team Visit Care Team Role Provider Type Roxane Hummel MD Primary Care Provider Non-Staff Specialty: Internal Medicine Address: [address] [place] [address], [id number] Email: [email or web address] Hiram Saldana DO Emergency Provider Physician Specialty: Emergency Medicine Address: [address] [place] [address], [address] Email: [email or web address] Mojgan Rodríguez DO Admit Provider Physician Attending Provider Specialty: Internal Medicine Address: [address] [place] [address], [id number] Email: Modified Barium Swallow Study MARKETING SUPPORT ASSISTANT Modified Barium Swallow Study Start: 06/26/19 12:46 Freq: Status: Active Protocol: Document 06/26/19 12:47 JULIET (Rec: 06/26/19 12:51 JULIET [email or web address]) Modified Barium Swallow Study Total Time Visit Start Time 12:30 Visit Stop Time 13:15 Total Visit Minutes [address] Ade Pereira Reason for Referral Dysphagia Setting Setting Acute Care Patient Information Identification Type Name ID Card Patient History The patient is a 69-year-old female with a history of aphasia following multiple strokes. She was brought to the hospital for nausea vomiting and inability to eat. Per medical records' report from interview with pt's significant other, in March the patient had a tooth extraction . She was given antibiotics and following that he noted decrease in her ability to eat . She typically is able to eat usual amount of food. Over the past several weeks she has been eating less and less such that about a week ago she stopped eating altogether. Because her oral intake had decreased he brought her to the hospital for evaluation. Patient is maintained at home. She has caregivers 5 hours a day. Significant other provides most of her meals for her and she remains at home. During hospitalization, the pt failed Nsg swallow screening. She underwent Endoscopy yesterday (06/25) with the following impressions resultin. Mild generalized duodenitis in the 1st portion of the duodenum -biopsies pending, no ulceration; 2. Type 1 paraesophageal hernia; 3. No sigmoid or rectosigmoid stricture -consequently no a partial bowel obstruction at this area. The pt was cleared for advancement of diet per tolerance in light of recent nausea. MBSS was ordered for swallow evaluation. Subjective Observations Pt was seen briefly in her room prior to MBS. She is largely non-verbal secondary to stroke(s). Using head gestures in response to yes/no questions, she informed she is having difficulty managing secretions and feels she is choking on saliva. Nsg informed of use of suction to assist and stated secretions have been thick. Pt has been NPO since admission to hospital. The pt was then transported to Radiology for the procedure, which was not video recorded d /t equipment failure. Patient Positioning Position View Lateral Imaging Lateral View Textures Administered Trials Presented [place] Liquid via Spoon Honey Liquid via Cup Dysphagia Blenderized Textures Oral Phase Source: MBSIMP (TM) (C) Bolus Specific Scoring Grid Lip Closure Moderate Impairment Tongue Control During Bolus Hold Moderate Impairment Bolus Prep/Mastication Moderate Impairment Bolus Transport/Lingual Motion Moderate Impairment A/P Lingual Propulsion Delay Yes Oral Residue Moderate Impairment Residue Clearing Moderate Impairment Nasal Regurgitation No Additional Oral Phase Observations Oral Peripheral Exam: The pt is edentulous. Informed that she has full dentures that she normally wears when eating, but that they are not at the hospital with her. Pt has moderate severe labial weakness, resulting in consistent open mouth posture, pooling of saliva between jaw and lower lip/cheeks. However , she was able to produce smile and pucker with mildly reduced ROM. Reduced strength, coordination and ROM also observed with mandible, cheeks , and soft palate. She was able to produce only a very weak volitional cough. Oral Phase: Adequate oral acceptance with labial closure around tsp. Mild anterior escape observed with pt's head in neutral position. During trial with chin tuck, the pt was unable to contain bolus anteriorly. Occasional spillage of bolus to floor of mouth was observed during bolus hold, and lingual rocking with all trials was noted during bolus hold and a/ p transport. Once initiated, bolus transport was giles. Moderate oral residue was observed and mixed with viscous saliva; pt unable to clear independently and attempts by MARKETING SUPPORT ASSISTANT to clear with swab were only somewhat successful d/t thickness of saliva and barium mixture. Pharyngeal Phase Source: MBSIMP (TM) (C) Bolus Specific Scoring Grid Delayed Initiation of Pharyngeal Swallow Yes Number of Seconds Delayed (seconds) 3-6 Soft Palate Elevation WFL Tongue Base Strength/Range of Motion Mild Impairment Residue Along the Tongue Base Yes: NTL only; No residue with HTL or pudding Vallecular Residue Yes: NTL only; No residue with HTL or pudding Laryngeal Vestibular Closure Severe Impairment Posterior Pharyngeal Wall Residue No Upper Esophageal Sphincter Opening WFL Residue in the Pyriform Sinuses Yes: NTL only; No residue with HTL or pudding Pharyngoesophageal Backflow Observed No Additional Pharyngeal Phase Observations Nimesh aspiration of NTL. Pt elicited cough response; however, cough strength was insufficient to protect the airway. No penetration or aspiration observed with 1/2 tsp each of HTL and pudding x3 trials. Swallow trigger delayed to vallecula with all trials. Pharyngeal residue observed with NTL only, dispersed throughout the pharynx. Complete clearance of HTL and pudding was achieved during single swallow of each. UES opening was WNL. A/P View Clinical Impressions Dysphagia Type Moderate-Severe Oropharyngeal Findings Moderate-Severe Oropharyngeal Dysphagia secondary to reduced strength, coordination and ROM of swallow musculature likely residual from history of multiple strokes. Nimesh aspiration of >1/2 bolus of NTL was observed x2 trials; trace aspiration observed in a 3rd trial of NTL. The pt safely tolerated HTL and pudding trials with no airway compromise or pharyngeal residue. Thin liquid was not trialed for pt safety. Regular texture was not trialed d/t lack of dentition and for pt safety. The pt is at high risk of aspiration with thin and NTL; moderately low risk with HTL and pureed texture, however could be increased by fatigue. Facial droop and weakness prevent pt from utilizing chin tuck to assist in swallow safety, and cough response is too weak to protect the airway at this time. Rehabilitation Potential Fair Patient Appropriate for Therapy Yes: Ongoing assessment for diet tolerance and safety Recommendations Diet Liquids Order Honey Diet Order Dysphagia Blenderized Medication Recommendation Crushed in Carrier Additional Dietary Needs 1:1 Supervision 1:1 Assistance Aspiration Precautions Recommended Precautions Upright at 90 Degrees Small Bites/Sips Treatment Plan Therapy Recommendations Inpatient Speech Therapy Recommended Referrals Dietary Consult Compensatory Strategies Recommendations Sitting Upright (90 deg) Short Term Goals The pt will consume HTL and pureed textures without overt s/sx of aspiration. MARKETING SUPPORT ASSISTANT to provide ongoing assessment and pt/family education. Will trial swallow exercises and assess for stimulability. Wax Pot Tender Goals The pt will tolerate least restrictive diet to meet her nutrition and hydration needs. Placement Recommendation After Discharge Home with Home Health
--- NOTE | 2019-06-26 18:20 | PC.NURSE ---
Evening Shift Note- Patient alert and oriented able to communicate by writing. paper and pen available at all times. Patient in bed resting quietly and watching TV at this time. No Complaints of pain or discomfort at this time. safety measures in place. ariana leigh view of nurses station. bed alarm activated. call ell and phone within reach. Will continue to monitorl
[2019-06-26] MEDS: LORazepam 2 MG/ML INJ IV (20:23)
[2019-06-27] VITALS (7 sets, daily range): BP systolic 129–159; BP diastolic 77–97; PULSE 77–85; RESP 15–18; TEMP 36.3–36.6; O2SAT 95–99; BMI 15.3
[2019-06-27] MEDS: LORazepam 2 MG/ML INJ IV (00:35)
--- NOTE | 2019-06-27 00:48 | PC.NURSE ---
patient refused turn
--- NOTE | 2019-06-27 02:57 | PC.NURSE ---
Assembly Member Note: 0030: Awake, resting in bed. Vital signs stable. IV in place in rt AC with NS/40meq KCL/L infusing at 84cc/hr. Incontinent of urine: renae care given and clean brief on. Turned and repositioned. Pt indicated she feels cold: warm blanket put on.
[2019-06-27] MEDS: KCL 40 MEQ IN NS 1,000 ML 84 MEQ IV ×2 (03:41→14:35)
[2019-06-27] MEDS: PANTOPRAZOLE 40 MG VIAL IV (08:13)
[2019-06-27] MEDS: ENOXAPARIN 40 MG/0.4 ML SYRINGE SUBCUT (08:14)
[2019-06-27] MEDS: SODIUM CHLORIDE 0.9% FLUSH 10 ML IV (08:15)
--- NOTE | 2019-06-27 09:12 | P.PN_ITS ---
Subjective Date Patient Seen: 06/27/19 Interval history: Patient is a 69-year-old female who was admitted to the [facility] for nausea vomiting and inability to eat. She underwent upper endoscopy which showed mild duodenitis but no evidence of ulceration or stricture. Patient also had a sigmoidoscopy which showed no colonic stricture either. She was found on modified barium swallow to have difficulty with swallowing and oliver aspiration. Her diet was recommended to be honey thick nectar consistency. It is unclear whether this will allow her to meet her nutritional needs. Patient is awake today. She indicates she would like to be discharged home. Exam Vital Signs (past 8 hours): - 06/27/19 04:55 Temperature 97.5 F L Pulse Rate 85 Respiratory Rate 18 Blood Pressure 159/97 H Pulse Oximetry 98 Oxygen Delivery Method Room Air Oxygen Flow Rate 0 Narrative Exam Narrative: Ill-appearing female Lungs: Clear to auscultation Cardiac exam: Regular rate and rhythm normal S1-S2 with a 2/6 systolic ejection murmur Abdomen: Soft, nontender, no organomegaly noted Extremities: No edema Objective Labs Result Diagrams: 06/26/19 05:04 06/26/19 05:04 Assessment & Plan Assessment & Plan narrative: ssessment & Plan narrative: Assessment & Plan narrative: 1. 69-year-old female admitted with intractable nausea and vomiting. She has evidence of duodenitis on CT scan. Patient also has minimal tenderness on abdominal exam. Question is whether she has an ulcer, stricture, or other intra-abdominal abnormality. Patient is awaiting EGD for further evaluation. She will have a speech evaluation pending the results of her EGD study. EGD completed about no evidence of stricture, ulcer, or explanation for eating disorder. The patient has duodenitis. She will continue on a PPI. Modified barium swallow indicates significant aspiration. Patient's diet will be changed to honey nectar thick consistency. Will ask for dietary consultation to determine whether she can meet her caloric needs. The patient may require PEG tube for tube feeding until her swallow function has improved. 2. History of stroke, present on admission 3. Aphasia, present on admission 4. Hypertension, chronic 5. Depression, chronic 6. Hypokalemia, present on admission, will replace 7. Moderate to severe protein calorie malnutrition
--- NOTE | 2019-06-27 11:28 | CM.DPC ---
Addendum entered by Yoli Stockton LPN 06/27/19 11:50: [facility]/APS : [phone] was here in followup to the APS referral sent in 06/25. Identified by his badge and confirmed with main nurses station that documentation could be provided at his request and without any request form signed. He met briefly with pt and then came to CM office and was provided with the needed clinical documention and an update on the care conference planned for today. He planned further followup with the Elisa workers and with pt's . Addendum entered by Yoli Stockton LPN 06/27/19 11:50: Dr. Pereira agrees therapy appropriate and will order this now. Addendum entered by Yoli Stockton LPN 06/27/19 11:43: A deeper review of the EMR shows that the initial DCP assessment shows that pt's prior level of functions was basically w/c with use of a walker for short distances and able to use bathroom by herself. No OT or PT has been ordered at this point. Will see if medically appropriate to begin this. Pt does desire home setting only. Vernon says he will honor this as long as her care is within his ability to manage. He is aware of the snf option and does not sound adverse to same but is concerned re his 's goal of remaining in the home. Original Note: DCP: continued: EMR reviewed, and case discussed in Team Rounds and then afterwards in more detail with dietitian Jemima and PHARM TECH Abby. Dr. Pereira says she has updated pt hsuband daily and that he is usually here in the late afternoon. Jemima is now documenting her recommendations which would include option of a peg tube, primarily to insure that pt is able to get adequate fluids as both she and PHARM TECH note this is very hard to do with thickened fluids. Have now spoken with pt to introduce self and role and to let her know that a meeting is set up with her, her , Dr. Pereira and the terminal press operator at 1330 to go over some options for her care and that all are hoping to here what she would like to do. Spoke with /life partner by phone this morning to set this up. He did confirm that [facility] Gissell is supposed to be providing more caregivers for his but it is taking a long time. Current Elisa workers are from [facility]. He says his does not have HH services and cannot recall that she ever has had this. P: call Gissell/Elisa CM: [phone] and participate in 1330 meeting today. SHIMA Swartz is updated.
--- NOTE | 2019-06-27 11:46 | DIET.PN ---
Dietary Progress Note Assessment: 69 y F referred for feeding plan to meet EERs c new dysphagia honey/puree diet dx RD consulted c Speech- will be very difficult for pt to meet EERs for kcal, PRO, and fluids c this diet dx xavi c hemiparesis, living at home c reliance on spouse and 5hr/d LEOPOLDO, difficulty of extracting water from honey thick liquids. Pt currently at BMI 15.3 c little room to experiment c PO only trial r/t severely low body wt for age. Pt at risk for refeeding r/t NPO 7d. HT: 162.56cm WT: 40.5kg BMI: 15.3 (severe for age) Wt HX: 51.1kg (06/20) 49.9 (06/24) 42.5 (06/25) MNA: 4 (malnourished) Diet: Dysphagia: honey/puree Labs: Na: 136 (L) K: 3.1 (L) Cr: 0.40 (L) B-126 Nutrition Diagnosis: Severe Chronic malnutrition r/t altered GI function aeb energy intake <50% EER x 5 weeks, GI symptoms (N/V) > 1 week, BMI less than normative standards for age (>65yo <21), weight loss >5 % in 1 mo. EER: 0316-2876 enrike @ 30-35 kcal/kg Pro: 55-64g @ 1.3-1.5g/kg Fluids: 1500mL @ 35mL/kg Interventions: PEG feedings cyclic over 12hr at night to meet EER (time:1900-700 or based on pt sleep cycle) c comfort PO intake dysphagia honey/puree during day Goal: Jevity 1.2 @ 85mL/hr (cyclic 12hr at night) c additional 600mL water as flushes. 100mL before and after feed, 100mL @ 900, 1200, 1500, and 1800. Provides: 1224kcal (30kcal/kg @ 87% needs), 57g PRO (1.4g/kg per malnutrition @100% needs), and 1423 mL fluids including flushes (35mL/kg @100% of needs) Note: Formula itself only provides 58% of fluid needs, adequate water flushes are imperative for proper hydration. -HOB elevated 30 degrees or more during infusion and for 30 min after feeding is stopped. -Open formulas must be disposed of after 48hrs. -Check residuals before each feeding. Initial Feeding Plan: 20mL/hr adding 10mL/hr Q4hr if tolerated as pt is high risk for refeeding. Monitor K+, Mg2+, and Phos labs, edema. *Consider supplementing these nutrients Monitoring/Evaluations: Feeding rate advancement, monitor K+, Mg 2+, and phos labs as pt is high risk for refeeding, edema, wt, residuals, formula tolerance, PO intake
--- NOTE | 2019-06-27 12:09 | CM.DPC ---
Addendum entered by Yoli Stockton LPN 06/27/19 14:52: Did also have lenghy discussion with pt and Serg re POLST information and provided each a copy to consider. Serg stating, she can read, she should be able to understand this. Discussed how it might be if pt were to go home under a hospice plan. Serg is familiar with this. He cared for his as she at home under Hospice Care > 20 years ago. Addendum entered by Yoli Stockton LPN 06/27/19 14:42: Met in conference with Delicatessen Department Manager Jemima, pt and her partner of [address] Pereira was unable to join in at that time but was able to update her and she then went in with this DCPlanner and further discussion continued. It became clear at pt tried to participate and write out some simple answers that her cognitive abilities were not well defined and that GRAIN OILSEED OR PASTURE FARM WORKER was needed for futher assessment and assist with the communication process that pt is used to using. Pt did continue to focus on want to go home even with Serg saying he could not manage this without caregivers and Dr. Pereira encouraging snf stay. She also continued to say she did want the peg tube. She indicated this several times to Jemima and this DCplanner and again to Dr. Pereira. Dr. Pereira plans to contact the surgeon. KAITLYNN Mora is now in room to work with pt. Of concern is the lack of a POA. Pt has not given this to anyone. She has a son in [facility]: Aleksander Trinidad who is not involved but can be reached and Serg will look for his phone number at home. Her other child, also a son, lives on the streets in [facility]. Pt indicates she would give POA to Serg, he is willing to accept this, but it is far from clear if she understands this well enough. KAITLYNN Mora will assist in this assessment process. P: follow up on these things tomorrow. Continue snf discussion and identify one as a back up plan. Total time spend on this case today: 2 + hours. Original Note: DCP: continued: please see notes of earlier today for the d/c planning update. This note is related to specific information provided by Elisa Borrero in phone conversation just now. Gissell clarifies that pt and has only one Elisa worker who has been working with pt for a very long time. She quit about 3 weeks ago and has not provided Gissell with a specific reason for this. Pt at that time was only under care of of Vernon (Serg) who was very concerned about this and did keep in contact with Gissell with requests for another caregiver. She said he preferred to stay with an agency but [facility] had no one so I found an individual provider but she did have a reputation for being unreliable. She went to the home but did not stay as it seemed to be more work than she anticipated. She quit as soon as pt went to the hospital and I have not been able to contact her in followup. I am now working with [facility] who say they may have someone but at this point cannot give a clear answer. I just sent them the referral. She says that pt has been assessed for 109 hours a month, approx 5 hours day, days week and may be eligible for an updated assessment but her problem is finding anyone to even do the 109. P: discuss all this at the 1330 meeting today. Will have a discussion re how snf stay may serve as a bridge during this time and xavi helpful if pt goes on a tube feed. Will see about palliative discussion also. Dr. Pereira is aware.
--- NOTE | 2019-06-27 12:55 | ST.IPDYTX ---
PRODUCT DEVELOPMENT ENGINEER Dysphagia Treatment PRODUCT DEVELOPMENT ENGINEER Dysphagia Treatment Start: 06/27/19 14:20 Freq: Status: Active Protocol: Document 06/27/19 14:20 TLC (Rec: 06/27/19 14:30 TLC [id number]) Dysphagia Treatment Session Time Visit Start Time 12:55 Visit Stop Time 13:15 Total Visit Minutes 20 Setting Assessment Location Acute Care Visit Type Note Type Treatment Note Next Note Type Next Note Type Treatment Note Patient Information Subjective Observations Nursing staff requested patient be seen by PRODUCT DEVELOPMENT ENGINEER due to gagging during lunch. Patient currently on honey thick liquid, puree texture diet following MBS yesterday. Patient's (?) present in the room. Meeting to be held at 13:30 with hospitalist , director case management, atmospheric physicist, patient and family to determine plan as patient has not been able to sustain nutrition and has significant weight loss over the last few months. Treatment Liquids Trialed Honey Solids Trialed Puree Administration Type Tea Spoon Oral Strategies Double Swallow Dry Spoon Controlled Bite/Sip Size Treatment Activities Fed patient one teaspoon of mashed potatoes resulting in gag. Per , patient does not like mashed potatoes. Patient consumed bite of pudding without gagging, but SAMUEL Chi reports patient had been gagging even on pudding prior to my entering the room. At that time, Chi discontinued feeding and requested PRODUCT DEVELOPMENT ENGINEER assistance. Observed diffuse oral residue which patient had difficulty clearing. Patient had difficulty eliciting volitional swallow despite verbal prompts and tactile cues (dry spoon). Patient answered with a verbal yes when asked if she was tired. Feeding was discontinued for patient safety. Verbal education was provided to the patient and her regarding results of MBS yesterday including reasoning for thickened liquids. They expressed understanding. Assessment Patient Response to Treatment Poor Assessment of Improvement Poor oral intake due to gagging. Discussed with atmospheric physicistJemima and primary care coordinator, Yoli who will be present at meeting at 1:30 today. Patient would benefit from cognitive/language evaluation to assess her level of understanding and ability to make informed decisions about her care and determine whether or not she would be a good candidate for pharyngeal strengthening exercises to improve swallow function. Diet Recommendations Recommendations Continue Current Diet Liquids Order Honey Diet Order Dysphagia Blenderized Aspiration Precautions Recommended Precautions Upright at 90 Degrees Small Bites/Sips Double Swallow Check for Pocketing Treatment Plan Appropriate for Continued Therapy Yes Therapy Recommendations Cognitive/language assessment
--- NOTE | 2019-06-27 18:18 | ST.IP.CME ---
Care Team Visit Care Team Role Provider Type Roxane Hummel MD Primary Care Provider Non-Staff Specialty: Internal Medicine Address: [address] [place] [address], [id number] Email: [email or web address] Hiram Saldana DO Emergency Provider Physician Specialty: Emergency Medicine Address: [address] [place] [address], [id number] Email: [email or web address] Mojgan Rodríguez DO Admit Provider Physician Attending Provider Specialty: Internal Medicine Address: [address] [place] [address], [address] Email: Current Diagnoses Nausea with vomiting, unspecified (06/24/19) Past Medical History (Last Reviewed 06/24/19 @ 21:38 by ZANE Edmonds) CVA (cerebral vascular accident) (Acute Medical) Hypertension (Acute Medical) Speech-Language Pathology Cognitive Evaluation COLOR DEPOSITING MACHINE TENDER Cognitive/Memory Evaluation Start: 06/27/19 17:47 Freq: Status: Active Protocol: Document 06/27/19 17:47 LNK (Rec: 06/27/19 18:13 LNK [id number]) Evaluation of Cognition Session Time Visit Start Time 14:30 Visit Stop Time 15:15 Total Visit Minutes 46 Next Note Type Next Note Type Treatment Note Referral Referring Physician Dr Rodríguez Evaluation Assessment Type SLUMS Past Medical History Patient History Patient is a 69-year-old female who was admitted to the hospital for nausea vomiting and inability to eat. She underwent upper endoscopy which showed mild duodenitis but no evidence of ulceration or stricture. Patient also had a sigmoidoscopy which showed no colonic stricture either. She was found on modified barium swallow to have difficulty with swallowing and oliver aspiration. Her diet was recommended to be honey thick nectar consistency. COLOR DEPOSITING MACHINE TENDER Tamiko Scott treated the pt for swallow dysfunction earlier today. COLOR DEPOSITING MACHINE TENDER recommended that the patient would benefit from cognitive/ language evaluation to assess her level of understanding and ability to make informed decisions about her care and determine whether or not she would be a good candidate for pharyngeal strengthening exercises to improve swallow function. Pt has hx of sever expressive aphasia with hemiparesis. Subjective Subjective Pt was up in bed with her in attendance. Pt and had just completed a meeting with the irs agent, director of social media marketing and Dr. Rodríguez regarding a feeding tube placement. - Formal Assessment Standardized Test SLUMS Administration Complete Raw Score Results The pt's score of 12/30 indicates dementia. The pt was tired; however, she was able to complete the assessment with written responses. her scores were as follows: Orientation 1/3; Short term Memory 2/5; Problem Solving / Mental Math 0/3; Divergent naming 8/15+; Clock Drawing 0/ 4; Identification 2/2; Recall from a short paragraph 8 - Cognition Orientation Skill Level Severely Impaired Attention Skill Level Moderately Impaired Problem Solving/Reasoning/Judgment Skill Level Severely Impaired Category Naming/Identification Skill Level Moderately Impaired Sequencing Skill Level Severely Impaired Auditory Math Skill Level Severely Impaired Clock Drawing Skill Level Severely Impaired Cognitive Assessment Cognitive Assessment The Pt presented with significant cognitive impairment with a total score on the SLUMS of 12/30 indicating dementia. The pt was tired; however, based on the results obtained, the pt would have produced a similar score when more alert. Pt answered my inquiries as to if she understood and she also indicated when she knew she could not complete a task. She would shake her head and put the pen down. - Memory Immediate Recall Skill Level Severely Impaired Word Recall Skill Level Severely Impaired Story Recall Skill Level Mildly Impaired - Findings Cognitive/Memory Impressions Moderate to severe cognitive dysfunction. Pt is oriented to herself and her . She is aware she is in the hospital and expressed a desire to go home. Treatment Goals Short Term Goals pt will be able to understand and express her needs to caregivers. yes/no questions are best for the pt; however she is able to write answers. Legibility of her writing is poor. Total Time Full Evaluation Time 91
[2019-06-27] MEDS: ZOLPIDEM 5 MG TABLET PO (20:55)
[2019-06-28] VITALS: BP 146/92; PULSE 83; RESP 16; TEMP 37; O2SAT 97
--- NOTE | 2019-06-28 00:32 | PC.NURSE ---
0000 Checked Pt. sleeping soundly, will monitor & assess when she wakes up.
[2019-06-28 00:50] VITALS: O2SAT 97
[2019-06-28] MEDS: KCL 40 MEQ IN NS 1,000 ML 84 MEQ IV ×3 (02:56→20:21)
[2019-06-28 05:00] VITALS: BP 151/98; PULSE 80; RESP 16; TEMP 36.4; O2SAT 98
[2019-06-28 06:23] LABS: Blood Urea Nitrogen 4 mg/dL (7-17); Carbon Dioxide 24 mmol/L (22-32); Chloride 99 mmol/L (98-107); Estimated Glomerular Filt Rate > 60.0 mL/min (>60); Glucose 107 mg/dL (80-110); HEMOLYSIS < 15 (0-50); Potassium 4.2 mmol/L (3.4-5.1); Sodium 133 mmol/L (137-145)
[2019-06-28 09:00] VITALS: BP 143/93; PULSE 81; RESP 16; TEMP 36.8; O2SAT 98
[2019-06-28] MEDS: PANTOPRAZOLE 40 MG VIAL IV (09:11)
[2019-06-28] MEDS: ENOXAPARIN 40 MG/0.4 ML SYRINGE SUBCUT (09:11)
[2019-06-28 09:53] VITALS: O2SAT 93
--- NOTE | 2019-06-28 10:55 | CM.DPC ---
Addendum entered by Yoli Stockton LPN 06/28/19 14:22: KEVYN/Portia has called back. JACKIETFran will accept the referral and an assessment Monday will not be needed. [facility] Joanne will update Yaritza/RADHA to release the referral. Serg is updated. Addendum entered by Yoli Stockton LPN 06/28/19 11:43: Have spoken now with Portia/ZAIN and Yaritza/[facility] CHRISTINE. Both will review the case. Portia will plan to see pt on Monday to assess. Serg and pt are updated. Is noted that Serg is using his FWW today here in the hospital. Serg had confirmed earlier this morning that Aleksander would need to be the one to give surgical consent and also to give the ok for a snf stay and the location of same. Reminded him again of this and will provide snf brochures. Original Note: DCP: continued: EMR reviewed and including DRIP PUMPER cognitive eval of late yesterday. Discussed in Team Rounds. Dr. Pereira has spoken with surgeon Dr. Etienne and he will place peg tube pending ok of a decisional family member. A snf will be needed after this hospital stay. Abby/DRIP PUMPER confirms that pt shows moderate to severe cognitive dysfunction. Scores 12/30 on SLUMS= dementia. Dr. Pereira agrees that pt at this time is not decisional. Serg, her partner of 20 years has no legal standing as POA was never given. Spoke with Serg this morning and he provided Aleksander's cell phone but said he was only able to leave a message. Serg says Aleksander will need to be the one Her son Aleksander Trinidad will need to talk with Dr. Pereira and or Dr. Etienne before a procedure of peg with be considered. Have now obtained Aleksander's phone #[phone] and have spoken with him. He states that he has had no contact with his mother in many years and that for his own well being and that of his young family he had had to cut off all contact with his family of origin. He understands that decisions are needed and he is agreeable to help make these, saying he wants only what is best for his mother. He is willing to speak with the physicians and agrees with Dr. Pereira and Serg that snf level care is needed. SNF choice list: discussed: decision [facility] or [facility]. It is unclear if pt will need to stay on for longer term care after snf stay and these facilities would be likely able to accommodate this option. Requested that [facility] provide a referral packet for snf review. Have updated Dr. Pereira and Dr. Etienne re all this and Dr. Etienne is now on phone with Aleksander. Surgery will likely be tomorrow for peg placement/schedule dependent. P: SNF at d/c and when pt is stable for same. Anticipate that snf staff will want to see pt before acceptance. Will alert the snf admission staff now and have [facility] fax when she has time to do so.
--- NOTE | 2019-06-28 11:13 | P.PN_ITS ---
Subjective Date Patient Seen: 06/28/19 Interval history: The patient is a 69-year-old female who was admitted to the hospital for inability to swallow in addition to nausea and vomiting. She underwent upper endoscopy which revealed duodenitis but no evidence of peptic ulcer disease. She had a sigmoidoscopy which showed no evidence of stricture. She had a swallow evaluation which showed oliver aspiration. Patient was placed on a honey nectar thick diet. Since that time which is yesterday she has only been able to eat about 10% of her diet. Plans are underway for definitive peg tube placement. There has been some difficulty with obtaining power of managing attorney for her we have identified her son who is given consent for her to undergo PEG tube placement. She is sleepy today. We discussed the PEG yesterday unfortunately she does not recall this today. She had a cognitive evaluation by speech pathology which revealed a slums evaluation of 09/25. Exam Vital Signs (past 8 hours): - 06/28/19 05:00 06/28/19 09:00 06/28/19 09:53 Temperature 97.6 F 98.3 F Pulse Rate 80 81 Respiratory Rate 16 16 Blood Pressure 151/98 H 143/93 H Pulse Oximetry 98 98 93 Oxygen Delivery Method Room Air Oxygen Flow Rate 0 Narrative Exam Narrative: Ill-appearing debilitated female Lungs: Clear to auscultation, decreased breath sounds Cardiac exam: Regular rate rhythm normal S1-S2 Abdomen: Soft nontender nondistended Extremities: No edema Neuro exam the patient is dysarthric, and with expressive aphasia. She has a dense dotty paresis in the right upper extremity. She is slow to respond today. She seems more confused and does not appear to recall our discussion yesterday. Objective Labs Result Diagrams: 06/26/19 05:04 06/28/19 05:30 Labs: Laboratory Results - last 24 hr 06/28/19 05:30 Sodium 133 L Potassium 4.2 Chloride 99 Carbon Dioxide 24 BUN 4 L Creatinine 0.40 L Estimated GFR > 60.0 BUN/Creatinine Ratio 10.0 Glucose 107 Calcium 8.0 L Assessment & Plan Assessment & Plan narrative: Assessment & Plan narrative: ssessment & Plan narrative: Assessment & Plan narrative: 1. 69-year-old female admitted with int ractable nausea and vomiting. She has evidence of duodenitis on CT scan. Patient also has minimal tenderness on abdominal exam. Question is whether she has an ulcer, stricture, or other intra-abdominal abnormality. Patient is awaiting EGD for further evaluation. She will have a speech evaluation pending the results of her EGD study. EGD completed about no evidence of stricture, ulcer, or explanation for eating disorder. The patient has duodenitis. She will continue on a PPI. Modified barium swallow indicates significant aspiration. Patient's diet will be changed to honey nectar thick consistency. Will ask for dietary consultation to determine whether she can meet her caloric needs. The patient may require PEG tube for tube feeding until her swallow function has improved. Given patient's inability to significantly increase her oral intake plans are underway for PEG tube placement tomorrow. 2. History of stroke, present on admission 3. Aphasia, present on admission 4. Hypertension, chronic 5. Depression, chronic 6. Hypokalemia, present on admission, will replace 7. Moderate to severe protein calorie malnutrition, start Clinimix today S patient is only able to eat 10% of her diet.
--- NOTE | 2019-06-28 12:28 | PT.IIE ---
Current Diagnoses Nausea with vomiting, unspecified (06/24/19) Surgery Performed Operation Date: 06/25/19 16:00 Actual Procedures p Esophagogastroduodenoscopy with biopsy - Herve Gregorio MD s Colonoscopy Flexible Sigmoidoscopy - Herve Gregorio MD Operation Date: 06/28/19 15:00 <No data on this case meets the specified criteria> Medical History (Last Reviewed 06/24/19 @ 21:38 by ZANE Edmonds) CVA (cerebral vascular accident) (Acute) Hypertension (Acute) Physical Therapy Inpatient Evaluation/Re-Eval M1 PT/OT-IP Prior Functional Status Start: 06/28/19 12:00 Freq: NEEDED Status: Active Protocol: Document 06/28/19 11:40 (Rec: 06/28/19 12:28 [id number]) Medical Review Prior Functional Status Medical History Reviewed Yes Diet/Fluid Consistency Pureed Honey Thick Communication Pt has expressive aphasia but able to understand and follow simple commands. She is also able to write to communicate or nodding for yes/ no answers . Pt Had 2 CVA prior Mobility and Gait Per CG [place], Pt is mostly home bound and w/c bound. She is able to walk for short distance up to 60 ft with FWW. Pt had 2 CVA before but her last one left her L hemiplegic and expressive aphasia. Activities of Daily Living and IADL's Pt has CG comes in 5 times/ week to assist bathing, meal prep, med management, grocery shopping. Pt is able to perform toileting independent / under supervision. Social History Household Members significant other Living Arrangements House Number of Stairs To Enter/Railing? Unable to obtain at tthis point due to aphasia. F/U next time with CG Home Equipment Front Wheel Walker Manual Wheelchair Employment Status Retired Additional Social History Comment Per , pt lives with ex Vernon and pt received cares from [facility] for 5 hours/day x 5 per week except weekend. But they are planning to have weekend covered as well in the future. Pt is currently deciding to receive PEG tube placement due to her inability of eat. SW eval shows pt has dementia with a score 12/30, along with significant aspiration from Barium swallow study. M2 PT-IP Current Condition Start: 06/28/19 12:00 Freq: NEEDED Status: Active Protocol: Document 06/28/19 11:40 (Rec: 06/28/19 12:28 [id number]) Physical Therapy Current Condition Current Condition Evaluation Date 06/28/19 Treatment Diagnosis Nausea, inability to eat, difficulty in walking, chronic CVA Onset Date 3 weeks ago Weight Bearing Status Weight Bearing Status Weight Bear as Tolerated M3 PT-IP Subjective Start: 06/28/19 12:00 Freq: NEEDED Status: Active Protocol: Document 06/28/19 11:40 (Rec: 06/28/19 12:28 [id number]) Subjective Physical Therapy Visit Type Type Initial Evaluation Visit Start Time 11:40 Visit Stop Time 12:00 Total Visit Minutes 20 Number of PROBATION AND PAROLE OFFICER Visits 0 Physical Therapy Visit Comments Patient Comments Pt agreeable to mobilize with PT Therapy Pain Assessment Pain Present Pain Present Denied Pain M4 PT-IP Mobility and Gait Start: 06/28/19 12:00 Freq: NEEDED Status: Active Protocol: Document 06/28/19 11:40 (Rec: 06/28/19 12:28 [id number]) PT-Bed Mobility Assessment Rolling Type of Rolling Roll to Right Level of Assist Minimal Assistance 1 Person Assistance Supine to Sit Supine to Sit Minimal Assistance Head of Bed Elevated Bedrails Scooting Scooting to Edge of Bed Moderate Assistance Scooting Up and Down in Bed Moderate Assistance PT-Transfer Assessment Sit to and From Stand Sit to and from Stand Minimal Assistance 1 Person Assistance Use of Upper Extremities Equipment Transfer Assistive Device None Gait Belt Front Wheeled Walker Transfers Transfer Destination Bed Chair Transfer Technique Squat Pivot Transfer Ability Level of Assist Maximum Assistance 2 Person Assistance Use of Upper Extremities Comments Mobility Comments Pt up in bed upon assessment. She agreed to attempt transferring to bedside chair by nodding yes. Pt was able to sit up at EOB on R side from elevated HOB ~40degrees with the use of bedrail and min A; mod A for scooting with the use of bedpad. However, pt was able to stand up by using her R UE for push and min A from therapy. Attempted to stand step pivot with FWW but unsuccessful since pt appears anxious and weak on WB on LLE. But she was able to achieve with squat pivot after. Call light within reach and pillow underneath her L UE. Gait Assessment Comments Gait Comments unable to assess PT-Balance Assessment Sitting Balance and Reactions Static Sitting Balance Ability Good Dynamic Sitting Balance Ability Good Standing Balance and Reactions Static Standing Balance Ability Good Dynamic Standing Balance Ability Fair Device Used FWW M5 PT-IP Objective Assessments Start: 06/28/19 12:00 Freq: NEEDED Status: Active Protocol: Document 06/28/19 11:40 (Rec: 06/28/19 12:28 [id number]) Orientation Orientation/Cognition Level of Alertness Alert Orientation Name Age Birthday Language Function Ability Expressive Aphasia Safety Awareness Decreased Safety Awareness Memory Description No Deficits Noted Gross Range of Motion Upper Extremity ROM Assessment Left Impaired Impairments unable to raise L UE pass 90 degrees Lower Extremity ROM Assessment Left Impaired Strength Upper Extremity Strength Assessment Left Impaired Lower Extremity Strength Assessment Left Impaired Comments Strength Comments grossly 2/5 for LUE; 3/5 L LE Sensation Assessment Sensation Gross Sensation WNL Muscle Tone Muscle Tone WNL No Muscle Tone Location Left Lower Extremity Severity of Tone Mild Left Upper Extremity Type of Tone Hypertonicity Flexor Severity of Tone Moderate M6 PT-IP Treatment Start: 06/28/19 12:00 Freq: NEEDED Status: Active Protocol: Document 06/28/19 11:40 (Rec: 06/28/19 12:28 [id number]) Physical Therapy Treatment Education Education Provided Safety M7 PT-IP Assessment and Plan Start: 06/28/19 12:00 Freq: NEEDED Status: Active Protocol: Document 06/28/19 11:40 (Rec: 06/28/19 12:28 [id number]) PT Summary Assessment and Plan Potential Rehabilitation Potential Good Status of Condition at Evaluation Evolving Summary Impairments ROM Strength Balance Tone Cognition Bed Mobility Transfers Gait Activity Tolerance Assessment Summary Pt is a mod complexity due to her hx of chronic CVA and expressive aphasia. Pt currently appears very weak and was only able to perform squat transfer to bedside chair on R side with max A x 2p. She is far from her baseline at this point and will be a very high burden for her CGs so SNF would be a better option to improve her functional mobility and strength. Will cont assess pt' s DME at home when her CG presents. Goals Bed Mobility Goal Contact Guard Assistance Transfer Goal Contact Guard Assistance Front Wheeled Walker Gait Goal Contact Guard Assistance Front Wheel Walker Jarrell Walker Gait Distance 20 Days to Meet Goals 10 Frequency of Treatment Frequency Of Treatment Once a Day Treatment Plan Physical Therapy Treatment Plan Bed Mobility Training Transfer Training Gait Training Therapeutic Exercise Balance Retraining Discharge Planning Neuromuscular Re-ed Manual Therapy Other Recommendations and Next Treatment bed mob, transfer, BSC and Focus gait training with HW/FWW as eleuterio Discharge Recommendations PT Discharge Recommendations SNF Rehab Other Discharge Recommendations She is far from her baseline at this point and will be a very high burden for her CGs so SNF would be a better option to improve her functional mobility and strength. Equipment Needed for Home Before Will cont assess pt's DME at Discharge home when her CG presents.
--- NOTE | 2019-06-28 14:30 | PC.NURSE ---
PATIENT MOSTLY NON-VERBAL, WRITES DOWN HER WANTS AT TIMES, WRITING IS SOMEWHAT LEGIBLE WITH EFFORT. SPEECH WHEN PRESENT IS MUMBLED AND DIFFICULT TO UNDERSTAND. ABLE TO MAKE SIMPLE NEEDS KNOWN. NODS HEAD YES/NO. TOOK IN APPROX 10% OF BREAKFAST. FEEDS SELF A FEW BITES, BUT PREFERS TO BE FED. ALTERNATES BITES WITH THICKENED LIQUIDS. A FEW EPISODES OF GAGGING. NEEDS SMALL BITES. POOR APPETITE. ONLY TOOK APPROX 3 BITES LUNCH THEN REFUSED. IVF INFUSING PER ORDERS. PATIENT TRANSF BACK TO BED AFTER PHYSICAL THERAPY HAD GOTTEN HER UP, PER HER REQUEST. COCCYX IS ERYTHEMIC BUT BLANCHABLE. APPLIED SKIN PREP AND BOARDER FOAM DRSG TO COCCYX PREVENTATIVE MEASURE. POSITIONED PATIENT RIGHT SIDE LYING WITH WAFFLE CUSHION UNDER PATIENT. BED ALARM ON, HOB ELEVATED.
--- NOTE | 2019-06-28 14:59 | CM.DPC ---
DCP Cont: Called [facility] Evangel[facility] at [phone] and spoke to Patricia, informed her that this patient has been accepted by [facility]. Asked her to please cancel our referral. Joanne Garza, Care Financial Systems Analyst
[2019-06-28] MEDS: MORPHINE 2 MG/ML INJ 1 MG IV ×2 (17:45→20:20)
[2019-06-28 20:27] VITALS: BP 179/98; PULSE 85; RESP 18; TEMP 36.8; O2SAT 97
--- NOTE | 2019-06-28 21:37 | PC.NURSE ---
Evening Shift Note Pt sleeping most of shift, refusing vitals and PIV change from DIRECTOR MEDICA[employer] and this RN. Pt appears withdrawn this shift from yesterday. Pt rounded on frequently for repositioning or other needs. Pt refusing repositioning at times. Complaint of pain per pt, PRN IV Morphine given and pt able to sleep peacefully. Pt agreeable to checking vitals signs tonight, pt hypertensive. ZANE Oliva updated and aware. No new orders at this time, will continue to monitor pt.
[2019-06-29] VITALS (18 sets, daily range): BP systolic 142–183; BP diastolic 75–105; PULSE 75–101; RESP 12–17; TEMP 36.3–37.6; O2SAT 96–100
[2019-06-29] MEDS: MORPHINE 2 MG/ML INJ 1 MG IV ×3 (00:17→16:51)
[2019-06-29] MEDS: LACTATED RINGERS 1,000 ML 42 ML IV (04:10)
--- NOTE | 2019-06-29 08:15 | PM.PN.1 ---
Subjective Date Patient Seen: 06/29/19 Time Patient Seen: 08:21 Interval history: Reconsulted for this 69-year-old woman with a history of stroke and malnutrition. A swallow study was performed with barium that demonstrates aspiration. She consumes approximately 10% of her dysphagia diet. Following a discussion with the patient's son and the and her significant other they have elected to proceed with a percutaneous endoscopic gastrostomy tube placement.No acute overnight events Exam Vital Signs (past 8 hours): - 06/29/19 03:00 06/29/19 06:27 06/29/19 07:20 Temperature 97.7 F 97.6 F 99.7 F H Pulse Rate 85 76 100 H Respiratory Rate 16 16 16 Blood Pressure 156/99 H 183/96 H 157/105 H Pulse Oximetry 98 97 98 Oxygen Delivery Method Room Air Oxygen Flow Rate 0 Narrative Exam Narrative: General malnourished elderly female no acute distress, aphasic Chest clear to auscultation bilaterally nonlabored respirations Cardiac regular rate and rhythm Abdomen soft nontender nondistended Extremities warm well perfused Objective Labs Result Diagrams: 06/29/19 09:10 06/29/19 09:10 Assessment & Plan (1) Stroke: Current visit: Yes Status: Acute (2) Dysphagia: Current visit: Yes Status: Acute Assessment & Plan narrative: 69 female with malnutrition result of prior stoke. Swallow evaluation reviwed demonstrates dysphagia. -Esophagoduodenoscopy with percutaneous endoscopic gastrostomy tube placement today -Discussed procedural risks including bleeding, infection, leak, need for conversion to open
[2019-06-29] MEDS: PANTOPRAZOLE 40 MG VIAL IV (08:20)
--- NOTE | 2019-06-29 09:20 | PM.PN.1 ---
Subjective Date Patient Seen: 06/29/19 Interval history: Patient is a 69-year-old female admitted to the hospital for swallowing difficulties in inability to eat. Patient failed her swallow evaluation. She was unable to manage significant oral intake on a honey nectar thick pureed diet. After consultation with the patient's son she will undergo PEG tube placement today. The patient has had a stroke which has left her aphasic with left hemiparesis. Her significant other was at the bedside and concurs with the plan to move forward with PEG tube placement. Patient does not have a PICC line. Therefore peripheral or TPN could not be administered. Our hopes is that she will get her PEG tube and start tube feedings today with plans to go to the group home facility within the next day or so. Exam Vital Signs (past 8 hours): - 06/29/19 03:00 06/29/19 06:27 06/29/19 07:20 Temperature 97.7 F 97.6 F 99.7 F H Pulse Rate 85 76 100 H Respiratory Rate 16 16 16 Blood Pressure 156/99 H 183/96 H 157/105 H Pulse Oximetry 98 97 98 06/29/19 08:49 Temperature Pulse Rate 80 Respiratory Rate Blood Pressure 142/75 H Pulse Oximetry 97 Oxygen Delivery Method Room Air Oxygen Flow Rate 0 Narrative Exam Narrative: Debilitated female lying in bed in no obvious distress Lungs: Clear to auscultation Cardiac exam: Regular rate and rhythm normal S1-S2 with a 2/6 systolic ejection Abdomen: Soft and nontender without hepatosplenomegaly no palpable mass no board-like rigidity Extremities: No edema Neuro exam patient is at time confused, she is aphasic, with a dense left hemiparesis. Objective Labs Result Diagrams: 06/26/19 05:04 06/28/19 05:30 Assessment & Plan Assessment & Plan narrative: ssessment & Plan narrative: Assessment & Plan narrative: ssessment & Plan narrative: Assessment & Plan narrative: 1. 69-year-old female admitted with intractable nausea and vomiting. She has evidence of duodenitis on CT scan. Patient also has minimal tenderness on abdominal exam. Question is whether she has an ulcer, stricture, or other intra-abdominal abnormality. Patient is awaiting EGD for further evaluation. She will have a speech evaluation pending the results of her EGD study. EGD completed about no evidence of stricture, ulcer, or explanation for eating disorder. The patient has duodenitis. She will continue on a PPI. Modified barium swallow indicates significant aspiration. Patient's diet will be changed to honey nectar thick consistency. Will ask for dietary consultation to determine whether she can meet her caloric needs. The patient may require PEG tube for tube feeding until her swallow function has improved. Given patient's inability to significantly increase her oral intake plans are underway for PEG tube placement today. 2. History of stroke, present on admission 3. Aphasia, present on admission 4. Hypertension, chronic 5. Depression, chronic 6. Hypokalemia, present on admission, will replace 7. Moderate to severe protein calorie malnutrition, start Clinimix today S patient is only able to eat 10% of her diet. Anticipate discharge to the group home unit either tomorrow or the next day.
[2019-06-29 09:24] LABS: Add Manual Diff / Slide Review NO; Basophils Absolute Auto 0 /uL (0-100); Basophils Percent Auto 0.3 % (0-2); Eosinophils Absolute Auto 0 /uL (0-450); Eosinophils Percent Auto 0.1 % (2-4); Hematocrit 35.2 % (36-46); Hemoglobin 12.3 g/dL (12.0-16.0); Lymphocytes Absolute Auto 1300 /uL (1100-4500); Mean Corpuscular HGB Conc 34.8 % (30-36); Mean Corpuscular Hemoglobin 32.2 PG (26-34); Mean Corpuscular Volume 92.5 fL (80-100); Monocytes Absolute Auto 600 /uL (0-900); Monocytes Percent Auto 9.3 % (3-14); Neutrophils Absolute Auto 4600 /uL (1500-7000); Neutrophils Percent Auto 70.3 % (50-75); Platelet Count 228 X10^3/uL (150-400); Red Blood Cell Count 3.81 X10^6/uL (4.0-5.2); White Blood Cell Count 6.5 X10^3/uL (4.5-11.0)
--- NOTE | 2019-06-29 09:29 | PM.PREOP ---
Pre-operative Note Interval Note History & Physical reviewed/Exam performed by Physician: Yes Changes to H&P: No
[2019-06-29 09:33] LABS: BUN Creatinine Ratio 12.5 (6-22); Blood Urea Nitrogen 5 mg/dL (7-17); Calcium 8.3 mg/dL (8.4-10.2); Carbon Dioxide 24 mmol/L (22-32); Chloride 93 mmol/L (98-107); Estimated Glomerular Filt Rate > 60.0 mL/min (>60); Glucose 159 mg/dL (80-110); HEMOLYSIS < 15 (0-50); Potassium 3.7 mmol/L (3.4-5.1); Sodium 131 mmol/L (137-145)
[2019-06-29] MEDS: CEFAZOLIN 2 GM/100 ML FROZ.PIGGY IV (10:40)
--- NOTE | 2019-06-29 10:55 | CM.DPC ---
Addendum entered by Germaine Munguia R.N. 06/29/19 11:59: Kearney back from Tabatha at [facility]. Stated that they can accept patient tomorrow, but would like to come here after 4:00 to see patient. She is aware of surgical procedure today. Kearney back from Ravindra, construction code administrator at [facility] who called back. Let him know that this clinical case manager had spoken to someone who did not know anything about this admission. He stated that Aleksander would be in admissions tomorrow, and could reach him on admission line at: [phone]. Ravindra, construction code administrator, also gave his cell phone number, which is: [phone]. He stated they only have 1.5 Jevity only, and if she needs to continue on 1.2, they will have to send some over to get her through the week-end until Monday. Tabatha at [facility] confirmed that they do have 1.2 available. Original Note: DCP Cont: Discussed case at team rounds. Patient is having surgery today for PEG tube placement. Dr. Pereira anticipates that she can be discharged tomorrow if all of the tube feedings are arranged. Went ahead and called [facility] in [facility]. Spoke to Ashley, who stated, I'm the only one working today, and I don't know anything about a new admit, and haven't received any information. According to notes, Portia at [facility] in [facility] stated that they could accept patient. Asked Ashley for Portia's number, and she stated, I don't know, I don't have it. Asked her if she had a manager drilling there, and stated, she's the only one there. Went ahead and called Tabatha in admissions at [facility] in [facility]. She was able to give this clinical case manager Portia's number. Attempted to reach Portia, could not reach her or leave a voice mail. Called son, Aleksander, and asked him if [facility] in [facility] would be an option. He stated, like I said, I haven't talked to my mom in five years, but what ever you think is best. Already attempted [facility], and they stated, they are still training, and have no one in admissions tomorrow. Tabatha at [facility] in [facility] stated that they could possibly accept patient tomorrow. Gave her some information about case over the phone, such as [place], and Medicare/Medicaid, as well as detention placement. Sent over history and physical, recent prog notes, discharge planning note, and speech notes. Also sent over med list. Tabatha stated that they have certain feedings available. She mentioned that they have Jevity 1.5, 1.2, Glucerna 1.2 enrike, Prosource 4.5 ml, and 2 enrike Jevity. Will have to coordinate this with dietary as well. For now, Tabatha will review. She stated that Rachel will be in admissions as well. Tabatha gave her personal cell of: [phone]. P: DCP to continue to follow. Will attempt placement at [facility] Elsie Gannon. Germaine Munguia RN/Customer Contact Sales Associate
--- NOTE | 2019-06-29 10:57 | SUR.OPER ---
Supine on bed, head on pillow, arms along her body, legs uncrossed, safety rails is up on the non operative site.
--- NOTE | 2019-06-29 11:44 | PM.OP.1 ---
Operative Date/Time/Diagnoses Date of procedure: 06/29/19 Time of procedure: 11:44 Pre-op diagnosis: dysphagia stroke malnutrition Post-op diagnosis: same Procedure & Clinicians Procedure: esophagoduodenoscopy percutaneous endoscopic gastrostomy tube placement Same procedure as scheduled: Yes Indications: dysphagia malnutrtion stroke Surgeon: Martin Etienne Click Yes if Unassisted: Yes Anesthesia Type: General Operative Notes Findings: retained gastric contents Prosthetic devices, grafts, tissues, transplants, or devices: PEG tube Estimated Blood Loss (mL): 1 Procedure in detail: Brief clinical note. The patient is a 69-year-old female with a history of stroke and dysphagia. She has developed malnutrition and a swallow evaluation was done during the course of the hospital it demonstrated dysphagia and aspiration. Following discussion with her son her proxy as well as her significant other decision was made to proceed with EGD and percutaneous endoscopic gastrostomy tube placement. Procedure. the patient was brought to the operating room and placed supine on the table. A time-out was performed to ensure the correct patient procedure necessary equipment within the operating room. Monitored anesthesia care was induced. The endoscope was advanced into the mouth and esophagus and and at this time the patient had a small amount of emesis. The scope was withdrawn and the patient was suction. The emesis was clear. Following discussion with the anesthesia provider and her sedation was changed to general anesthesia. She was intubated with endotracheal tube. At this time and the endoscope was reintroduced into the mouth the transverse through the esophagus and into the stomach. The inside of the stomach demonstrated gastric contents small. The stomach was examined there had previously been mentioned in prior EGD of of recent of gastritis and duodenitis. These were not observed. The scope was advanced into the pyloric channel which was examined and was normal. The 1st portion of the duodenum was inspected and was normal as well. We surveyed the stomach and chose a point on the anterior aspect of the stomach suitable for PEG positioning. The anterior wall of stomach was transilluminated. The abdominal wall was then prepped and draped. A small incision was made in the anterior wall of the abdomen and the needle and catheter were advanced under direct visualization into the anterior aspect of the stomach. A guidewire was then threaded through the catheter and was which were retrieved with the endoscope. We then threaded on the PEG tube which was then fed back through the mouth and into the stomach using the guidewire. The scope was then reinserted into the stomach and we verified that the gastrostomy tube was appropriately positioned and then 3 cm to the skin were resecured it rotated freely within the stomach. The stomach was suctioned and scope was carefully withdrawn. The patient was emerged from anesthesia was extubated and transferred to the recovery room in stable condition. Complications: none Condition: stable Disposition: PACU Plan for aftercare: Ok to start tube feeds. PEG at 3 cm to skin
--- NOTE | 2019-06-29 11:49 | PT.IPTN ---
Current Diagnoses Cerebral infarction, unspecified (06/24/19) Nausea with vomiting, unspecified (06/24/19) Dysphagia, unspecified (06/24/19) Surgery Performed Operation Date: 06/25/19 16:00 Actual Procedures p Esophagogastroduodenoscopy with biopsy - Herve Gregorio MD s Colonoscopy Flexible Sigmoidoscopy - Herve Gregorio MD Operation Date: 06/29/19 10:00 Actual Procedures p Peg Tube Insertion - Martin Etienne MD Physical Therapy Treatment Note M2 PT-IP Current Condition Start: 06/28/19 12:00 Freq: NEEDED Status: Active Protocol: Document 06/28/19 11:40 HH (Rec: 06/28/19 12:28 HH [id number]) Physical Therapy Current Condition Current Condition Evaluation Date 06/28/19 Treatment Diagnosis Nausea, inability to eat, difficulty in walking, chronic CVA Onset Date 3 weeks ago Weight Bearing Status Weight Bearing Status Weight Bear as Tolerated M3 PT-IP Subjective Start: 06/28/19 12:00 Freq: NEEDED Status: Active Protocol: Document 06/29/19 11:48 CLB (Rec: 06/29/19 11:49 CLB [id number]) Subjective Physical Therapy Visit Type Type Patient Unavailable Notes Pt on hold today per RN Lianet due to PEG tube sx.
--- NOTE | 2019-06-29 15:57 | PC.NURSE ---
GI: Off to OR for peg tube placement. Returned w/peg in place, clamped. No pain on arrival. Sleepy. Cont pulse ox is on and sats are 99-100%. BP this am was 151/105, was having pain then and morphine given. Bp down to 142/75. Bp remains on the high side but has not needed hydralazine per parameter. Pt is repositioned q2hrs, has a sm open area on buttock which is covered with an allyven dressing. Dr. Pereira notified of pt's tube placement and she will manage feedings. Pt reports she has had some nausea off and on prior to today, none today. Cont w/poc.
[2019-06-29] MEDS: KCL 40 MEQ IN NS 1,000 ML 84 MEQ IV (22:38)
--- NOTE | 2019-06-29 23:42 | PC.NURSE ---
2100- Post 80ml volume gleucerna 1.2 food, post residual- 5ml, increased rate to 30ml/hr and VTBI 80ml. flush is set for 150mg/6hours. Pt reports no new pain, cramps, or nausea. WCTM.
--- NOTE | 2019-06-29 23:44 | PC.NURSE ---
Evening note: PEG tube feed started at 1730. [facility] did not have Jevity 1.2 in stock, saying they would not get until monday, Dr Pereira ordered that we could substitute Glucerna 1.2 until we are able to obtain Jevity 1.2. Glucerna feed started at 20 ml/hour with water flush done before feed and programmed into pump to flush 150 ml q6h to equal 600 ml total for 24 hours. After 4 hours, residual checked = 5 ml, feeding then increased to 30 ml/hour. Tube site with gauze that is dry/intact, scant shadow drainage observed but drsg is dry. At 2044 staff found patient lying in bed on her side, had pulled out IV from right hand, small amts of sanguinous drainage on linens, bed rails, floor. I placed pressure drsg to right hand that was no longer actively bleeding, small burris bruise at site. Linens changed, patient cleaned, housekeeping in to mop & sanitize rail. Patient appears to have limited venous access, MACHINE CUTTER here to start IV in left wrist. IVF infusing to new IV with no difficulty.
[2019-06-30] VITALS (8 sets, daily range): BP systolic 146–159; BP diastolic 88–99; PULSE 71–99; RESP 15–19; TEMP 36.1–36.9; O2SAT 96–99
[2019-06-30] MEDS: LORazepam 2 MG/ML INJ 0.5 MG IV ×2 (00:19→19:37)
[2019-06-30] MEDS: MORPHINE 2 MG/ML INJ 1 MG IV ×4 (02:31→23:46)
--- NOTE | 2019-06-30 02:39 | PC.NURSE ---
0145 Residual checked noted only 3 cc. Increased tube feeding to feeding Glucerna 1.2 to 50 ml/hr. Will monitor.
[2019-06-30] MEDS: ONDANSETRON 4 MG/2 ML INJ IV (05:21)
--- NOTE | 2019-06-30 05:36 | PC.NURSE ---
0500 checked pt. noted emesis small amount. Then she requested to suction her mouth she started vomiting approximately 200cc unmeasured & approximately 75 cc in the canister. Notified CARDIOLOGY CLINICAL NURSE SPECIALIST Pj ordered to stop TF X2 hours, administer Zofran done & resume @ 30 cc/hr. @ 0700. Hold tube feeding since 0500 & will monitor
[2019-06-30 06:00] LABS: Blood Urea Nitrogen 8 mg/dL (7-17); Calcium 8.7 mg/dL (8.4-10.2); Carbon Dioxide 26 mmol/L (22-32); Chloride 91 mmol/L (98-107); Estimated Glomerular Filt Rate > 60.0 mL/min (>60); Glucose 165 mg/dL (80-110); HEMOLYSIS < 15 (0-50); Phosphorous 2.7 mg/dL (2.8-4.1); Potassium 3.3 mmol/L (3.4-5.1); Sodium 130 mmol/L (137-145)
[2019-06-30] MEDS: MAGNESIUM SULFATE 2 GM/50 ML PIGGYBACK IV (07:04)
--- NOTE | 2019-06-30 07:35 | PC.NURSE ---
0700 Tube feeding restarted @ 30 ml./hr. Mag rider infusing @ 25 cc/hr. Mag. level only 1.0. Reported to DR. Etienne that pt. had large amount of emesis this morning @ 0500. Report given to day RN.
--- NOTE | 2019-06-30 08:53 | PM.PNPO.1 ---
Subjective Date Patient Seen: 06/30/19 Time Patient Seen: 08:54 Interval history: Patient is postoperative day 1 status post percutaneous endoscopic gastrostomy tube placement. Overnight patient had an episode of emesis. In discussion with the nurse her initial gastric residuals were minimal and then with the increase tube feed rate she had an episode of emesis. Exam Vital Signs (past 8 hours): - 06/30/19 05:00 06/30/19 07:15 Temperature 97 F L 98.4 F Pulse Rate 99 H 74 Respiratory Rate 17 15 Blood Pressure 154/99 H 146/88 H Pulse Oximetry 97 98 Oxygen Delivery Method Room Air Oxygen Flow Rate 0 Narrative Exam Narrative: General elderly female no acute distress aphasic Chest nonlabored respirations Abdomen soft peg in place at 3 cm to the skin. Objective Labs Result Diagrams: 06/29/19 09:10 06/30/19 05:31 Labs: Laboratory Results - last 24 hr 06/29/19 06/29/19 06/30/19 09:10 09:10 05:31 WBC 6.5 RBC 3.81 L Hgb 12.3 Hct 35.2 L MCV 92.5 MCH 32.2 MCHC 34.8 RDW 15.0 H Plt Count 228 Neut % (Auto) 70.3 Lymph % (Auto) 20.0 L [place] % (Auto) 9.3 Eos % (Auto) 0.1 L Baso % (Auto) 0.3 Neut # (Auto) 4600 Lymph # (Auto) 1300 [place] # (Auto) 600 Eos # (Auto) 0 Baso # (Auto) 0 Sodium 131 L 130 L Potassium 3.7 3.3 L Chloride 93 L 91 L Carbon Dioxide 24 26 BUN 5 L 8 Creatinine 0.40 L 0.40 L Estimated GFR > 60.0 > 60.0 BUN/Creatinine Ratio 12.5 20.0 Glucose 159 H 165 H Calcium 8.3 L 8.7 Phosphorus 2.7 L Magnesium 1.0 L Assessment & Plan Post-op Postoperative Procedures Operation Date: 06/25/19 16:00 Actual Procedures Side Surgeon p Esophagogastroduodenoscopy with biopsy Herve Gregorio MD s Colonoscopy Flexible Sigmoidoscopy Herve Gregorio MD Operation Date: 06/29/19 10:00 Actual Procedures Side Surgeon p Peg Tube Insertion aMrtin Etienne MD Postoperative plan narrative: 69-year-old female postoperative day 1 status post percutaneous endoscopic gastrostomy tube placement the. May resume the tube feeds a rate of 30 mL today and advance as tolerated. Her endoscopy demonstrated retained gastric contents despite being NPO for 8 hours suggesting that she has some delayed emptying. She may not be able to achieve her calculated goal rate.
[2019-06-30] MEDS: PHOSPHA 250 NEUTRAL TABLET 250 MG PO ×2 (09:50→12:51)
[2019-06-30] MEDS: SODIUM CHLORIDE 0.9% FLUSH 10 ML IV ×2 (09:50→23:47)
[2019-06-30] MEDS: PANTOPRAZOLE 40 MG VIAL IV (10:07)
[2019-06-30] MEDS: ENOXAPARIN 40 MG/0.4 ML SYRINGE SUBCUT (10:07)
--- NOTE | 2019-06-30 10:30 | PT-IP ANOTE ---
Pt having a lot of nausea and vomiting at this time due to her tube feedings. Nursing feels at this time that getting her tube stablized more important than mobilization. Hold activities this AM
--- NOTE | 2019-06-30 11:06 | CM.DPC ---
DCP Cont: Tabatha, admissions nurse at [facility], came by to assess patient yesterday afternoon. Stated that she met with patient, and patient stated, she did not want to go, wanted to go home. Tabatha had lengthy conversation with patient regarding going home, and needing more care, especially with tube feedings. Patient apparently asked her to leave her room. Received a call from Ronna in admissions at [facility]. She stated that they would be able to pick patient up today at 1400, if she is ready. Let her know that this piano case and bench assembler would follow up with Dr. Pereira, as well as significant other, for he will be coming here to see her regarding her needing to go to halfway. Vernon has clearly stated that he can't care for her at this time. Patient does not have 24 hour caregiving in the home regardless. P: Dr. Pereira will attempt reaching wrestling coach today to be sure about what patient will need to be discharged with. [facility] does have Glucerna 1.2 available, as well as Jevity 1.2, if patient needs. At this time, she can tolerate approximately 30 mls at a time. Will follow up with Vernon as well, for he is on his way here today. Germaine Munguia, RN/Preform Plate Maker
--- NOTE | 2019-06-30 12:19 | PM.DS.1 ---
History of Present Illness Date Patient Seen: 06/30/19 Chief complaint: N/V Narrative: Екатерина Gilmore is a 69 y.o. female with a history of a CVA last one occurring 5 years ago and essential hypertension presented with an acquaintance and thus chief complaint of intractable nausea and vomiting and inability to eat for approximately 5 weeks. Patient is aphasic and is unable to provide a history and the person accompanying her is no longer present in the hospital. Information is obtained from the ED provider, surgeon notes and a limited interview with the patient. Patient indicates she has been unable to eat for 5 weeks and the ED noted she has not had a bowel movement X 3 weeks. Discharge Providers Date of admission: 06/24/19 16:42 Discharge Date: 06/30/19 Primary care physician: Roxane Hummel MD Consults: 06/24/19 17:58 Consult to Dietitian, Adult Routine Comment: Reason For Exam: weight loss unintentional 06/24/19 20:46 Consult to Speech Therapy Evaluate & Treat Comment: Physician Instructions: Evaluate and treat 06/25/19 18:04 Consult to Respiratory Therapy Evaluate & Treat Comment: deep suctioning Physician Instructions: Evaluate and treat 06/26/19 17:05 Consult to Dietitian, Adult Routine Comment: Reason For Exam: evaluate caloric needs 06/27/19 14:39 Consult to Occupational Therapy Evaluate & Treat Comment: Physician Instructions: Evaluate and treat Consult to Physical Therapy Evaluate & Treat Comment: Physician Instructions: Evaluate and Treat Discharge provider: Ade Pereira MD Summary Discharge Diagnosis: 1. Oral dysphagia, status post PEG tube placement 2. Duodenitis 3. History of stroke 4. Hypertension 5. GERD 6. Hypokalemia resolved 7. Moderate protein calorie malnutrition 8. Hyponatremia 9. Hyokalemia Hospital Course: The patient is a 69-year-old female who was admitted to the hospital with inability to swallow and poor oral intake. The patient initially had an upper endoscopy looking for the possibility of a peptic ulcer. There was no evidence of ulcer on the endoscopy however there was duodenitis found. The patient was treated with a PPI. In addition she underwent a sigmoid a be looking for a colonic stricture. There was no evidence of stricture. The patient was still unable to eat. Modified barium swallow showed oliver aspiration. She was allowed to have a nectar thick honey pureed diet. Unfortunately the patient was unable to get enough calories and or liquids with this diet. She was only able to eat about 10% of her meal. She then had a PEG tube placement. She tolerated the procedure without difficulty. Her goal feeding is 85 cc/hour. She is currently on 30 cc/hour and has some evidence of possible refeeding syndrome she had some vomiting last evening. She will be slowly advanced to 85 cc/hour. The patient is nonambulatory at this time. She was living at home with her significant other. That time she was able to ambulate and go to the bathroom on her own. The goal is for her to get physical therapy and occupational therapy such that she will be able to return home. Her significant other needs to make arrangements for increased nelly help at home as he will be managing her tube feeds in addition to her current medical illnesses. The patient is reluctant to go to a care home unit. She does understand that is the only way for her to get home. She is agreeable and arrangements will be made for her to go home. Status at Discharge Cognitive/behavioral status at discharge: confused Functional status at discharge: wheelchair bound Overall status at discharge: patient is not back to baseline Time Spent with Patient Less than 30 minutes Exam Vital Signs (past 8 hours): - 06/30/19 05:00 06/30/19 07:15 Temperature 97 F L 98.4 F Pulse Rate 99 H 74 Respiratory Rate 17 15 Blood Pressure 154/99 H 146/88 H Pulse Oximetry 97 98 Oxygen Delivery Method Room Air Oxygen Flow Rate 0 Narrative Exam Narrative: Ill-appearing debilitated female Lungs: Decreased breath sounds but clear Cardiac exam: Regular rate and rhythm normal S1-S2 Abdomen: Peg site clean and dry tube in place and functioning well Extremities: No edema Neuro exam: The patient is aphasic, with a dense left upper extremity dotty Objective Labs Result Diagrams: 06/29/19 09:10 06/30/19 05:31 Labs: Laboratory Results - last 24 hr 06/30/19 05:31 Sodium 130 L Potassium 3.3 L Chloride 91 L Carbon Dioxide 26 BUN 8 Creatinine 0.40 L Estimated GFR > 60.0 BUN/Creatinine Ratio 20.0 Glucose 165 H Calcium 8.7 Phosphorus 2.7 L Magnesium 1.0 L Discharge Plan Discharge Plan Discharge Problem: Intractable vomiting, Acute duodenitis Patient Disposition: SNF Transfer to: [facility] Transportation: Ambulance I certify the postop hospital care home care is medically necessary on a continuing basis for any conditions for which he/ she received care during this hospitalization.: Yes The receiving facility has agreed to accept transfer and provide medical treatment.: Yes Discharge Med Rec/Prescriptions Prescriptions: Continued mirtazapine 30 MG tablet 30 mg PO BEDTIME Qty: 0 RF: 0 sertraline 25 MG tablet 25 mg PO DAILY Qty: 0 RF: 0 carvedilol [Coreg] 6.25 MG tablet 6.25 mg PO BID Qty: 30 RF: 0 clopidogrel 75 mg tablet 75 mg PO DAILY RF: 0 amlodipine 10 mg tablet 10 mg PO DAILY RF: 0 zolpidem 5 mg tablet 5 mg PO BEDTIME PRN (Reason: Sleep) RF: 0 albuterol sulfate [Ventolin HFA] 90 mcg/actuation HFA aerosol inhaler 1 puff inhalation PRN PRN (Reason: Shortness Of Breath) RF: 0 ondansetron 4 mg tablet,disintegrating 4 mg translingual Q8H PRN (Reason: Nausea And Vomiting) RF: 0 omeprazole 20 mg capsule,delayed release(DR/EC) 20 mg PO DAILY Qty: 14 RF: 0 Discontinued azithromycin 250 mg tablet 250 mg PO DAILYX4 RF: 0 Follow up/Referrals: Roxane Hummel MD [Primary Care Provider] - Discharge Health Status Brief summary of current health status: Patient had a PEG tube placed. She is currently on Jevity 1.2. It her goal is 85 cc/hour. She is currently at 30 cc/hour. Please increase her tube feeds by 10 cc/cc per hour every 8 hours until she reaches a goal of 85 cc. The patient should be on cyclic feedings for 12 hours at night Provider Discharge Instructions Diet: Tube Feeding Diet comment: Jevity 1.2 with a goal of 85 cc/hour. She is at 30 cc/hour pain increased Activity: Physical therapy occupational therapy with a goal to be ambulatory with a walker [facility] Skin/Wound/Dressing Care Report to your healthcare provider any signs of infection, such as:: chills, fever and night sweats Special Rehabilitation Services Reason for rehabilitation: Recovery r/t decondition Rehab type: Physical therapy, Occupational therapy and Speech therapy Discharge Data Primary Care Provider: Roxane Hummel Attending Provider: Mojgan Rodríguez Admit Date/Time: 06/24/19 16:42
[2019-06-30] MEDS: POTASSIUM CHLORIDE 20 MEQ/15 ML UDC 40 MEQ PO (12:50)
[2019-06-30] MEDS: BISACODYL 10 MG SUPP PR (12:51)
--- NOTE | 2019-06-30 12:56 | PC.NURSE ---
Pt is alert but has aphagia and is unable to speak. She can somtimes write notes on paper of what she wants. Complained of discomfort around her peg tube, given 1mg of Morphine and helpful. Peg tube running at 30cc/hr and pt has tolerated well. No nausea or emesis. Dr. Etienne would like us to keep it at this rate for the day. Pt had 5cc residule. She is visiting with her now and has agreed to go to SNF for a short amount of time until can arrange in home nurses. Peg tube site wnl. Tolerated all po meds through her g tube. She is now getting a suppository to try and promote a bowel movement. still in room visiting.
--- NOTE | 2019-06-30 13:02 | OT.IP.TRT ---
Current Diagnoses Cerebral infarction, unspecified (06/24/19) Nausea with vomiting, unspecified (06/24/19) Dysphagia, unspecified (06/24/19) Surgery Performed Operation Date: 06/25/19 16:00 Actual Procedures p Esophagogastroduodenoscopy with biopsy - Herve Gregorio MD s Colonoscopy Flexible Sigmoidoscopy - Herve Gregorio MD Operation Date: 06/29/19 10:00 Actual Procedures p Peg Tube Insertion - Martin Etienne MD Occupational Therapy Treatment Note M3 OT- IP Subjective and Pain Start: 06/28/19 16:23 Freq: Status: Active Protocol: Document 06/30/19 12:59 CGR (Rec: 06/30/19 13:01 CGR [email or web address]) OT- Subjective Occupational Therapy Visit Type Type Administrative Note Notes Discussed with nursing. Current vomiting and discomfort with tube feeding. Deferred OT services at this time as physical activity is likely to only increase her nausea and current goal is to tolerate the tube feedings prior to discharge. Will hold and continue to follow.
--- NOTE | 2019-06-30 13:07 | PT-IP ANOTE ---
Spoke with OT, who had discussed patient with nursing. Per OT: Current vomiting and discomfort with tube feeding. Deferred OT services at this time as physical activity is likely to only increase her nausea and current goal is to tolerate the tube feedings prior to discharge. Will hold and continue to follow. Plan for physical therapy to also hold activity at this time.
--- NOTE | 2019-06-30 13:45 | CM.DPC ---
DCP Cont: Met with patient's significant other, Vernon, at patient's bedside. Patient has initially been refusing to go anywhere but home. This case briefer and Vernon had discussion with patient. Patient non-verbal, nodding yes or no. Discussed with patient significance of having 24 hour caregiving and nursing, secondary to her not being able to ambulate, as well as tube feedings. Patient needs to be monitored while feeding, and slowly brought up to her goal of 85mls. She is a full code. Vernon continued to explain, I can't help you at home now if you cant get up to use the bathroom, and unsure about doing the feedings. This case briefer explained to patient that this is temporary, for her LEOPOLDO caregiving hours need to be changed for her level of care which could take some time. She is also in need of physical, occupational, insulation power unit tender services. She continued to nod no to this case briefer. Had nurse Rajni attempt to talk to her, and patient continued to say no, she wants to go home. Updated Dr. Pereira regarding situation, and she stated that she would talk to patient. Dr. Pereira was able to get patient to consent to go to [facility]. This case briefer was unable to get patient to sign IMM, for it is difficult for her to sign, but obtained a verbal. Patient at times, continues to change her mind, but reminded her that fpc can continue with the level of care she is getting here. Patient weak, and has history of hemiparesis, so went ahead and called for non-emergent transport through [facility]. They will pick her up at approximately 1545, due to bowel issues. Had to continue to update Guille in admissions at [facility]. She will accept patient after 1600. Faxed over PASSR, discharge summary, signed med list, to Guille at [facility]. they can provide current prescribed Jevity, which the dose is indicated in her discharge summary. Vernon continues to offer support for patient and will work on getting her more LEOPOLDO hours while she is in skilled. P: Patient will be discharged to [facility] today. Nurse, Rajni, will call in report. Germaine Munguia RN/Rn Surgical
--- NOTE | 2019-06-30 15:30 | PC.NURSE ---
PT had a 200cc emesis from tube feeds. Residual 10cc. Dr. Pereira stopped pts discharge to [facility] and at 1430 wanted feeds stopped for 1 hour and to restart at 1530 at 10cc/hr and increase every 8 hours.
[2019-06-30] MEDS: METOCLOPRAMIDE 10 MG/2 ML INJ 5 MG IV ×2 (18:04→23:45)
--- NOTE | 2019-06-30 22:41 | PC.NURSE ---
Evening Shift Note- Peg tube feeding restarted at 1600 at 10cc's as ordered with a water fluch of 20cc's Q6H. Residual checked at 2200 with 5cc'sm notyed. Patient did complain of nausea this evening. IV ativan was given because patient was asking to sleep meds also at that time. Positive results noted. Did not increase feeding at this time due to the nausea. HOB kept up at 30degrees, frequent repositioning needed to keep patient at 30 degrees. safety measures in place. call vargas within reach. will continue to monitor.
[2019-07-01] VITALS (7 sets, daily range): BP systolic 118–146; BP diastolic 76–89; PULSE 82–87; RESP 15–18; TEMP 36.4–36.8; O2SAT 94–97
[2019-07-01] MEDS: MORPHINE 2 MG/ML INJ 1 MG IV (01:59)
--- NOTE | 2019-07-01 02:04 | PC.NURSE ---
Tube feeding not increased, pt still complaining of nausea. Residual 0
[2019-07-01] MEDS: METOCLOPRAMIDE 10 MG/2 ML INJ 5 MG IV ×2 (05:37→11:59)
--- NOTE | 2019-07-01 06:08 | PC.NURSE ---
Increased tube feed to 20ml/hr per PATCH SANDER Pj, previous 0200 residual was 0ml but didn't increase d/t complaints of nausea. PATCH SANDER wants to continue Q6 residuals, next check is at 0800.
[2019-07-01 06:21] LABS: Phosphorous 3.2 mg/dL (2.8-4.1)
[2019-07-01 06:23] LABS: BUN Creatinine Ratio 28.3 (6-22); Blood Urea Nitrogen 17 mg/dL (7-17); Carbon Dioxide 28 mmol/L (22-32); Chloride 93 mmol/L (98-107); Estimated Glomerular Filt Rate > 60.0 mL/min (>60); Glucose 146 mg/dL (80-110); HEMOLYSIS < 15 (0-50); Magnesium 1.7 mg/dL (1.6-2.3); Potassium 3.6 mmol/L (3.4-5.1); Sodium 130 mmol/L (137-145)
--- NOTE | 2019-07-01 09:26 | PC.NURSE ---
Day shift: Per Dr Carrillo increased PEG tube feeding rate to 40ml/hr. Was at 20ml/hr. Will continue to monitor Pt and response.
[2019-07-01] MEDS: ENOXAPARIN 40 MG/0.4 ML SYRINGE SUBCUT (09:28)
[2019-07-01] MEDS: PANTOPRAZOLE 40 MG VIAL IV (09:28)
--- NOTE | 2019-07-01 10:10 | DIET.PN ---
Dietary Progress Note Assessment: RD F/u re: pt not yet at goal rate for PEG TF. Pt wt stable since 06/27/19. Pt experiencing some nausea and emesis, feeding rate lowered to 20mL/h on Monday, up to 40mL/h today. Refeeding labs (K+, Mg, and Phos) within acceptable ranges, pt still at risk, continue monitoring. Pt discharging to SNF, please consider 24h continuous feeds for 1w or until pt tolerating feeds well then switch to cyclic 12h night feeds for pt daytime comfort. Continuous Feed Goal: Jevity 1.2 @ 45mL/hr (24h continuous) c additional 600mL water as flushes (100mL Q4). Provides: 1,296kcal (30kcal/kg @100% needs), 60g PRO (1.4g/kg per malnutrition @ 100% needs), and 1450mL fluids including flushes (35mL/kg @100% of needs) After ~ 1 week transition to: PEG feedings cyclic over 12hr at night to meet EER (time:1900-700 or based on pt sleep cycle) c comfort PO intake dysphagia honey/puree during day Goal: Jevity 1.2 @ 85mL/hr (cyclic 12hr at night) c additional 600mL water as flushes. 100mL before and after feed, 100mL @ 900, 1200, 1500, and 1800. Provides: 1224kcal (30kcal/kg @ 87% needs), 57g PRO (1.4g/kg per malnutrition @100% needs), and 1423 mL fluids including flushes (35mL/kg @100% of needs) Note: Formula itself only provides 58% of fluid needs, adequate water flushes are imperative for proper hydration. -HOB elevated 30 degrees or more during infusion and for 30 min after feeding is stopped. -Open formulas must be disposed of after 48hrs. -Check residuals before each feeding. HT: 162.56cm WT: 40.3kg BMI: 15.3 (severe for age) Wt HX: 51.1kg (06/20) 49.9 (06/24) 42.5 (06/25) MNA: 4 (malnourished) Diet: TF/Dysphagia: honey/puree Labs: Na: 130 (L) K: 3.6 (L) Phos: 3.2 M.7 B-165 (H) Nutrition Diagnosis: Severe Chronic malnutrition r/t altered GI function aeb energy intake <50% EER x 5 weeks, GI symptoms (N/V) > 1 week, BMI less than normative standards for age (>65yo <21), weight loss >5 % in 1 mo. EER: [id number] enrike @ 30-35 kcal/kg Pro: 55-64g @ 1.3-1.5g/kg Fluids: 1500mL @ 35mL/kg Monitoring/Evaluations: Feeding rate advancement, monitor K+, Mg 2+, and phos labs as pt is high risk for refeeding, edema, wt, residuals, formula tolerance, PO intake
--- NOTE | 2019-07-01 10:38 | PC.NURSE ---
Day shift: Pt refusing calf SCD's. Pt states they hurt.
--- NOTE | 2019-07-01 10:45 | ST.IPDYTX ---
Care Team Visit Care Team Role Provider Type Roxane Hummel MD Primary Care Provider Non-Staff Specialty: Internal Medicine Address: [address] [place] [address], [id number] Email: [email or web address] Hiram Saldana DO Emergency Provider Physician Specialty: Emergency Medicine Address: [address] [place] [address], [id number] Email: [email or web address] Mojgan Rodríguez DO Admit Provider Physician Attending Provider Specialty: Internal Medicine Address: [address] [place] [address], [id number] Email: ORDER ENTRY TECHNICIAN Dysphagia Treatment ORDER ENTRY TECHNICIAN Dysphagia Treatment Start: 06/27/19 14:20 Freq: Status: Active Protocol: Document 07/01/19 10:23 TLC (Rec: 07/01/19 10:31 TLC [email or web address]) Dysphagia Treatment Session Time Visit Start Time 10:05 Visit Stop Time 10:20 Total Visit Minutes 15 Setting Assessment Location Acute Care Visit Type Note Type Treatment Note Patient Information Subjective Observations Plans for Екатерина to discharge to SNF yesterday were canceled due to difficulty regulating tube feedings. Treatment Treatment Activities Екатерина awoke to my voice and when asked about PO intake, indicated in writing she would like some water. Her mouth was moist and clean. She was repositioned upright in bed and asked to perform a volitional swallow. After multiple attempts, she was unable to do so. A moist sponge was used, but still was unsuccessful in eliciting a volitional swallow. Due to severe weakness and difficulty initiating a dry swallow, no PO trials were administered. Per discussion with nursing, patient was made NPO (w/ tube feedings only) a few nights ago due to choking incident on PO intake. Assessment Patient Response to Treatment Poor Rehab Potential Poor Assessment of Improvement Significant decrease in oral and pharyngeal strength consistent with muscle atrophy likely due to lack of swallowing over the last few days. Diet Recommendations Liquids Order NPO Treatment Plan Therapy Recommendations [facility] . Recommend she be evaluated by speech therapy for swallowing, cognition and speech/language for ongoing treatment as appropriate in order to improve communication , swallowing and overall quality of life.
--- NOTE | 2019-07-01 11:54 | PC.NURSE ---
Day shift: Pt stated that she is nauseated and did not want the emesis bag. Will medicate with Reglan per JAN and tell Dr Carrillo.
--- NOTE | 2019-07-01 12:21 | PM.DS.1 ---
History of Present Illness Chief complaint: N/V Narrative: Екатерина Gilmore is a 69 y.o. female with a history of a CVA last one occurring 5 years ago and essential hypertension presented with an acquaintance and thus chief complaint of intractable nausea and vomiting and inability to eat for approximately 5 weeks. Patient is aphasic and is unable to provide a history and the person accompanying her is no longer present in the hospital. Information is obtained from the ED provider, surgeon notes and a limited interview with the patient. Patient indicates she has been unable to eat for 5 weeks and the ED noted she has not had a bowel movement X 3 weeks. Discharge Providers Date of admission: 06/24/19 16:42 Discharge Date: 07/01/19 Primary care physician: Roxane Hummel MD Consults: 06/24/19 17:58 Consult to Dietitian, Adult Routine Comment: Reason For Exam: weight loss unintentional 06/24/19 20:46 Consult to Speech Therapy Evaluate & Treat Comment: Physician Instructions: Evaluate and treat 06/25/19 18:04 Consult to Respiratory Therapy Evaluate & Treat Comment: deep suctioning Physician Instructions: Evaluate and treat 06/26/19 17:05 Consult to Dietitian, Adult Routine Comment: Reason For Exam: evaluate caloric needs 06/27/19 14:39 Consult to Occupational Therapy Evaluate & Treat Comment: Physician Instructions: Evaluate and treat Consult to Physical Therapy Evaluate & Treat Comment: Physician Instructions: Evaluate and Treat Discharge provider: Lito Carrillo MD Summary Discharge Diagnosis: 1. Oral dysphagia, status post PEG tube placement 2. Duodenitis 3. History of stroke 4. Hypertension 5. GERD 6. Hypokalemia resolved 7. Moderate protein calorie malnutrition 8. Hyponatremia 9. Hyokalemia 10. Gastroparesis Hospital Course: The patient is a 69-year-old female who was admitted to the hospital with inability to swallow and poor oral intake. The patient initially had an upper endoscopy looking for the possibility of a peptic ulcer. There was no evidence of ulcer on the endoscopy however there was duodenitis found. The patient was treated with a PPI. In addition she underwent a sigmoid a be looking for a colonic stricture. There was no evidence of stricture. The patient was still unable to eat. Modified barium swallow showed oliver aspiration. She was allowed to have a nectar thick honey pureed diet. Unfortunately the patient was unable to get enough calories and or liquids with this diet. She was only able to eat about 10% of her meal. She then had a PEG tube placement. She tolerated the procedure without difficulty. Her discharge on 06/30/2019 was canceled due to nausea and vomiting after initiation of tube feeds. We then started her on metoclopramide and restarted the tube feeds at a low rate. She is now at her goal rate of 40 cc/hour with 150 cc of free water every 6 hours. She is having some nausea which appears controlled and has not had recurrent vomiting since event yesterday. The metoclopramide can be tapered off if patient continues tolerating tube feeds. The patient is nonambulatory at this time. She was living at home with her significant other. That time she was able to ambulate and go to the bathroom on her own. The goal is for her to get physical therapy and occupational therapy such that she will be able to return home. She is being discharged to [facility] for group home rehab services with intent of returning home when ready. Status at Discharge Cognitive/behavioral status at discharge: oriented Functional status at discharge: wheelchair bound Overall status at discharge: patient is not back to baseline Time Spent with Patient Greater than 30 minutes Exam Vital Signs (past 8 hours): - 07/01/19 04:30 07/01/19 08:15 07/01/19 08:37 Temperature 98.3 F 98.0 F Pulse Rate 82 87 Respiratory Rate 18 16 Blood Pressure 126/77 146/89 H Pulse Oximetry 94 96 97 07/01/19 12:01 Temperature 97.9 F Pulse Rate 83 Respiratory Rate 16 Blood Pressure 118/78 Pulse Oximetry 96 Oxygen Delivery Method Room Air Oxygen Flow Rate 0 Objective Labs Result Diagrams: 06/29/19 09:10 07/01/19 05:50 Labs: Laboratory Results - last 24 hr 07/01/19 07/01/19 05:50 05:50 Sodium 130 L Potassium 3.6 Chloride 93 L Carbon Dioxide 28 BUN 17 Creatinine 0.60 Estimated GFR > 60.0 BUN/Creatinine Ratio 28.3 H Glucose 146 H Calcium 9.0 Phosphorus 3.2 Magnesium 1.7 Discharge Plan Discharge Plan Patient Disposition: SNF Transfer to: [facility], [facility] Transportation: Ambulance Consult as needed: Dental, Hearing, Mental health, Podiatry and Vision I certify the postop hospital group home care is medically necessary on a continuing basis for any conditions for which he/ she received care during this hospitalization.: Yes The receiving facility has agreed to accept transfer and provide medical treatment.: Yes Discharge Med Rec/Prescriptions Prescriptions: New metoclopramide HCl 5 mg tablet 5 mg feeding tube Q6H Qty: 90 RF: 0 Continued mirtazapine 30 MG tablet 30 mg PO BEDTIME Qty: 0 RF: 0 sertraline 25 MG tablet 25 mg PO DAILY Qty: 0 RF: 0 carvedilol [Coreg] 6.25 MG tablet 6.25 mg PO BID Qty: 30 RF: 0 zolpidem 5 mg tablet 5 mg PO BEDTIME PRN (Reason: Sleep) Qty: 30 RF: 0 clopidogrel 75 mg tablet 75 mg PO DAILY RF: 0 amlodipine 10 mg tablet 10 mg PO DAILY RF: 0 albuterol sulfate 90 mcg/actuation HFA aerosol inhaler 1 puff inhalation PRN PRN (Reason: Shortness Of Breath) RF: 0 ondansetron 4 mg tablet,disintegrating 4 mg translingual Q8H PRN (Reason: Nausea And Vomiting) RF: 0 omeprazole 20 mg capsule,delayed release(DR/EC) 20 mg PO DAILY Qty: 14 RF: 0 Discontinued azithromycin 250 mg tablet 250 mg PO DAILYX4 RF: 0 Follow up/Referrals: Roxane Hummel MD [Primary Care Provider] - Discharge Health Status Brief summary of current health status: Patient had a PEG tube placed. She is currently on Jevity 1.2. Patient is at goal rate of 40 cc/hr with 150 cc free water every 6 hours. on reglan for gastroparesis, can taper off reglan if tolerating TFs Multidrug resistant organism: No MDRO Precautions: [place] Provider Discharge Instructions Diet: Tube Feeding Diet comment: Jevity 1.2 with a goal of 85 cc/hour. She is at 30 cc/hour pain increased Activity: Physical therapy occupational therapy with a goal to be ambulatory with a walker and transfer [facility] Skin/Wound/Dressing Care Report to your healthcare provider any signs of infection, such as:: chills, fever and night sweats Special Rehabilitation Services Reason for rehabilitation: Recovery r/t decondition Rehab type: Physical therapy, Occupational therapy and Speech therapy Discharge Data Primary Care Provider: Roxane Hummel Attending Provider: Mojgan Rodríguez Admit Date/Time: 06/24/19 16:42
--- NOTE | 2019-07-01 12:27 | P.DS_ITS ---
History of Present Illness Chief complaint: N/V Narrative: Екатерина Gilmore is a 69 y.o. female with a history of a CVA last one occurring 5 years ago and essential hypertension presented with an acquaintance and thus chief complaint of intractable nausea and vomiting and inability to eat for approximately 5 weeks. Patient is aphasic and is unable to provide a history and the person accompanying her is no longer present in the hospital. I nformation is obtained from the ED provider, surgeon notes and a limited interview with the patient. Patient indicates she has been unable to eat for 5 weeks and the ED noted she has not had a bowel movement X 3 weeks. Discharge Providers Date of admission: 06/24/19 16:42 Discharge Date: 07/01/19 Primary care physician: Roxane Hummel MD Consults: 06/24/19 17:58 Consult to Dietitian, Adult Routine Comment: Reason For Exam: weight loss unintentional 06/24/19 20:46 Consult to Speech Therapy Evaluate & Treat Comment: Physician Instructions: Evaluate and treat 06/25/19 18:04 Consult to Respiratory Therapy Evaluate & Treat Comment: deep suctioning Physician Instructions: Evaluate and treat 06/26/19 17:05 Consult to Dietitian, Adult Routine Comment: Reason For Exam: evaluate caloric needs 06/27/19 14:39 Consult to Occupational Therapy Evaluate & Treat Comment: Physician Instructions: Evaluate and treat Consult to Physical Therapy Evaluate & Treat Comment: Physician Instructions: Evaluate and Treat Discharge provider: Lito Carrlilo MD Summary Discharge Diagnosis: 1. Oral dysphagia, status post PEG tube placement 2. Duodenitis 3. History of stroke 4. Hypertension 5. GERD 6. Hypokalemia resolved 7. Moderate protein calorie malnutrition 8. Hyponatremia 9. Hyokalemia 10. Gastroparesis Hospital Course: The patient is a 69-year-old female who was admitted to the hospital with inability to swallow and poor oral intake. The patient initially had an upper endoscopy looking for the possibility of a peptic ulcer. There was no evidence of ulcer on the endoscopy however there was duodenitis found. The patient was treated with a PPI. In addition she underwent a sigmoid a be looking for a colonic stricture. There was no evidence of stricture. The patient was still unable to eat. Modified barium swallow showed oliver aspiration. She was allowed to have a nectar thick honey pureed diet. Unfortunately the patient was unable to get enough calories and or liquids with this diet. She was only able to eat about 10% of her meal. She then had a PEG tube placement. She tolerated the procedure without difficulty. Her discharge on 06/30/2019 was canceled due to nausea and vomiting after initiation of tube feeds. We then started her on metoclopramide and restarted the tube feeds at a low rate. She is now at her goal rate of 40 cc/hour with 150 cc of free water e very 6 hours. She is having some nausea which appears controlled and has not had recurrent vomiting since event yesterday. The metoclopramide can be tapered off if patient continues tolerating tube feeds. The patient is nonambulatory at this time. She was living at home with her significant other. That time she was able to ambulate and go to the bathroom on her own. The goal is for her to get physical therapy and occupational therapy such that she will be able to return home. She is being discharged to [facility] for retirement rehab services with intent of returning home when ready. Status at Discharge Cognitive/behavioral status at discharge: oriented Functional status at discharge: wheelchair bound Overall status at discharge: patient is not back to baseline Time Spent with Patient Greater than 30 minutes Exam Vital Signs (past 8 hours): - 07/01/19 04:30 07/01/19 08:15 07/01/19 08:37 Temperature 98.3 F 98.0 F Pulse Rate 82 87 Respiratory Rate 18 16 Blood Pressure 126/77 146/89 H Pulse Oximetry 94 96 97 07/01/19 12:01 Temperature 97.9 F Pulse Rate 83 Respiratory Rate 16 Blood Pressure 118/78 Pulse Oximetry 96 Oxygen Delivery Method Room Air Oxygen Flow Rate 0 Objective Labs Result Diagrams: 06/29/19 09:10 07/01/19 05:50 Labs: Laboratory Results - last 24 hr 07/01/19 07/01/19 05:50 05:50 Sodium 130 L Potassium 3.6 Chloride 93 L Carbon Dioxide 28 BUN 17 Creatinine 0.60 Estimated GFR > 60.0 BUN/Creatinine Ratio 28.3 H Glucose 146 H Calcium 9.0 Phosphorus 3.2 Magnesium 1.7 Discharge Plan Discharge Plan Patient Disposition: SNF Transfer to: [facility], [facility] Transportation: Ambulance Consult as needed: Dental, Hearing, Mental health, Podiatry and Vision I certify the postop hospital retirement care is medically necessary on a continuing basis for any conditions for which he/ she received care during this hospitalization.: Yes The receiving facility has agreed to accept transfer and provide medical treatment.: Yes Discharge Med Rec/Prescriptions Prescriptions: New metoclopramide HCl 5 mg tablet 5 mg feeding tube Q6H Qty: 90 RF: 0 Continued mirtazapine 30 MG tablet 30 mg PO BEDTIME Qty: 0 RF: 0 sertraline 25 MG tablet 25 mg PO DAILY Qty: 0 RF: 0 carvedilol [Coreg] 6.25 MG tablet 6.25 mg PO BID Qty: 30 RF: 0 zolpidem 5 mg tablet 5 mg PO BEDTIME PRN (Reason: Sleep) Qty: 30 RF: 0 clopidogrel 75 mg tablet 75 mg PO DAILY RF: 0 amlodipine 10 mg tablet 10 mg PO DAILY RF: 0 albuterol sulfate 90 mcg/actuation HFA aerosol inhaler 1 puff inhalation PRN PRN (Reason: Shortness Of Breath) RF: 0 ondansetron 4 mg tablet,disintegrating 4 mg translingual Q8H PRN (Reason: Nausea And Vomiting) RF: 0 omeprazole 20 mg capsule,delayed release(DR/EC) 20 mg PO DAILY Qty: 14 RF: 0 Discontinued azithromycin 250 mg tablet 250 mg PO DAILYX4 RF: 0 Follow up/Referrals: Roxane Hummel MD [Primary Care Provider] - Discharge Health Status Brief summary of current health status: Patient had a PEG tube placed. She is currently on Jevity 1.2. Patient is at goal rate of 40 cc/hr with 150 cc free water every 6 hours. on reglan for gastroparesis, can taper off reglan if tolerating TFs Multidrug resistant organism: No MDRO Precautions: [place] Provider Discharge Instructions Diet: Tube Feeding Diet comment: Jevity 1.2 with a goal of 85 cc/hour. She is at 30 cc/hour pain increased Activity: Physical therapy occupational therapy with a goal to be ambulatory with a walker and transfer to toileting Skin/Wound/Dressing Care Report to your healthcare provider any signs of infection, such as:: chills, fever and night sweats Special Rehabilitation Services Reason for rehabilitation: Recovery r/t decondition Rehab type: Physical therapy, Occupational therapy and Speech therapy Discharge Data Primary Care Provider: Roxane Hummel Attending Provider: Mojgan Rodríguez Admit Date/Time: 06/24/19 16:42
--- NOTE | 2019-07-01 13:58 | OT.IP.TRT ---
Current Diagnoses Cerebral infarction, unspecified (06/24/19) Nausea with vomiting, unspecified (06/24/19) Dysphagia, unspecified (06/24/19) Surgery Performed Operation Date: 06/25/19 16:00 Actual Procedures p Esophagogastroduodenoscopy with biopsy - Herve Gregorio MD s Colonoscopy Flexible Sigmoidoscopy - Herve Gregorio MD Operation Date: 06/29/19 10:00 Actual Procedures p Peg Tube Insertion - Martin Etienne MD Occupational Therapy Treatment Note M3 OT- IP Subjective and Pain Start: 06/28/19 16:23 Freq: Status: Active Protocol: Document 07/01/19 13:57 CGR (Rec: 07/01/19 13:57 CGR [id number]) OT- Subjective Occupational Therapy Visit Type Type Administrative Note Notes Attempted x 2 today to see pt with P.T. Pt declined at both attempts. Pt now with d/c orders.
--- NOTE | 2019-07-01 14:22 | PT.IPTN ---
Current Diagnoses Cerebral infarction, unspecified (06/24/19) Nausea with vomiting, unspecified (06/24/19) Dysphagia, unspecified (06/24/19) Surgery Performed Operation Date: 06/25/19 16:00 Actual Procedures p Esophagogastroduodenoscopy with biopsy - Herve Gregorio MD s Colonoscopy Flexible Sigmoidoscopy - Herve Gregorio MD Operation Date: 06/29/19 10:00 Actual Procedures p Peg Tube Insertion - Martin Etienne MD Physical Therapy Treatment Note Freq: NEEDED Status: Active Protocol: Document 07/01/19 14:20 RS (Rec: 07/01/19 14:22 RS [id number]) Subjective Physical Therapy Visit Type Type Patient Refusal Notes Attempted in AM and PM to mobilize, pt refusing both times. Will try again tomorrow if pt is still here.
--- NOTE | 2019-07-01 14:43 | CM.DPC ---
DCP; continued: Case again received this morning and EMR reviewed from the weekend. Noted a bit of confusion re the current d/c plan as weekend snf staff at [facility] seemed not to be clear on the plan confirmed Monday for pending admission to that facilily. Spoke first with Portia/JAVIER who confirmed that they were expecting pt and could take her whenever she was stable for d/c. Called pt's son Aleksander Trinidad: [phone]. He said that he understood [facility] was full after talking with weekend [facility] staff and he stated he was pleased that the plan was still solidly in place for for snf stay at [facility] with a transition to [facility] there if need arose/and at this point highly probable. Followed up later with Tabatha/PRITIFran to discuss and release the referral that was sent to her over weekend. Discussed case in [employer] with deputy felony clerkclaudio Onofre and Dr. Carrillo. Pt had not done will with the tube feed of yesterday and thus the d/c had been cancelled. The feeding was adjusted and Dr. Carrillo said that if she did well by noon he planned to again proceed with the d/c plan. He ok'd pt for d/c this afternoon. Portia/ZAIN was updated. Ambulance was set up for 1600. Form filled out/to [facility] to scan and form now in place for ambulance crew. Orders reviewed and faxed to [facility]. Included today's updated note re Tube Feed specifics by dietitivianney Onofre. PASRR/completed this weekend/reviewed/ok'd and faxed to [facility] with placement into snf packet. Copy to [facility] to scan. Aleksander was updated and he will be following up to visit at the facility. Serg is now here and is updated. Copy of address of [facility] is given to him now. Will follow prn until pt leaves. P: [facility] today/1600 ambulance. SHIMA Smith is updated.
--- NOTE | 2019-07-01 17:34 | PC.NURSE ---
Discharge Note- Patient [facility]discharged [facility] in [facility]. Report called by this nurse to [facility] admission nurse. Patient left with EMT via stretcher at 1710. took all personal items.
== END 2019-07-01 17:10 | DRG 56 ==
LOC: ED 16:28 → AC 16:42
PROVIDERS: Internal Medicine; Nurse Practitioner Adult Health; Nurse Practitioner Family; Surgery; Admitting Provider Internal Medicine; Emergency Provider Emergency Medicine; PCP Internal Medicine; Visit Provider Internal Medicine
PROC: 0DJ08ZZ Inspection of Upper Intestinal Tract, Via Natural or Artificial Opening Endoscopic (ICD-10-PCS; CPT 43235; principal; 2019-06-25 16:00)
PROC: 0DJD8ZZ Inspection of Lower Intestinal Tract, Via Natural or Artificial Opening Endoscopic (ICD-10-PCS; CPT 45378; 2019-06-25 16:00)
PROC: 0DH63UZ Insertion of Feeding Device into Stomach, Percutaneous Approach (ICD-10-PCS; CPT 43246; principal; 2019-06-29 10:00)
DX: I69.391 Dysphagia following cerebral infarction (principal); E43 Unspecified severe protein-calorie malnutrition; Z68.1 Body mass index [BMI] 19.9 or less, adult; I69.354 Hemiplegia and hemiparesis following cerebral infarction affecting left non-dominant side; K29.80 Duodenitis without bleeding; I69.320 Aphasia following cerebral infarction; R13.13 Dysphagia, pharyngeal phase; I10 Essential (primary) hypertension; R11.2 Nausea with vomiting, unspecified; E87.6 Hypokalemia; F32.9 Major depressive disorder, single episode, unspecified; Z87.891 Personal history of nicotine dependence
CPT/HCPCS: 36415; 36591; 43239; 45330; 74022; 74177; 74230; 80048; 80053; 81001; 83690; 83735; 84100; 85025; 87633; 88305; 92526; 92611; 94799; 96125; 96365; 96366; 96375; 97162; 99152; 99153; 99232; 99285; C9113; J0690; J1650; J2060; J2250; J2270; J2405; J2704; J2765; J3010; J3480